=== PATIENT | male | born 1940 | race Caucasian/White ===

== ENCOUNTER → 2016-10-25 | Outpatient (CLI) | payer MEDICARE ==
[2016-10-25 11:08] LABS: Anisocytosis Slight; Basophils % (A) 1 %; C Reactive Protein <5.0 mg/L (<10.0); CH 29.5; CHCM 32.4; Eosinophils # (A) 0.1 k/uL (0-0.7); Eosinophils % (A) 2 %; HCT 35.4 % (39.0-53.0); HDW 2.48; HGB 11.9 gm/dL (13.0-17.5); Iron 37 ug/dL (49-181); Luc # (Auto) 0.12; Luc % (Auto) 3; Lymphocytes # (A) 1.2 k/uL (1.0-4.8); Lymphocytes % (A) 26 %; MCH 30.9 pg (25.0-35.0); MCHC 33.8 g/dL (31.0-37.0); MCV 91.5 fL (80.0-100.0); Mean Platelet Volume 7.2; Monocytes # (A) 0.3 k/uL (0-1.0); Monocytes % (A) 7 %; Neutrophils # (A) 2.8 k/uL (1.3-7.7); Neutrophils % (A) 61 %; RBC 3.87 m/uL (4.30-5.90); RDW 18.8 % (11.5-15.5); Reticulocyte % 1.5 % (0.5-2.0); WBC 4.5 k/uL (3.8-10.6); WBC (Perox) 4.68
[2016-10-25 11:15] LABS: % Iron Saturation 10.6 % (20-50); Total Iron Binding Capacity 348 ug/dL (261-462)
== END | disposition home or self-care (01) ==
LOC: LABWHC1 10:11
PROVIDERS: ATTEND Family Medicine
DX: D64.9 Anemia, unspecified (principal)
CPT/HCPCS: 36415; 83540; 83550; 85025; 85045; 86140

== ENCOUNTER → 2017-03-07 | Outpatient (CLI) | payer MEDICARE ==
[2017-03-07 15:34] LABS: CH 30.1; HCT 38.4 % (39.0-53.0); HDW 2.44; HGB 12.3 gm/dL (13.0-17.5); MCH 29.4 pg (25.0-35.0); MCHC 32.1 g/dL (31.0-37.0); MCV 91.7 fL (80.0-100.0); Mean Platelet Volume 7.4; RBC 4.19 m/uL (4.30-5.90); RDW 15.3 % (11.5-15.5); WBC 7.9 k/uL (3.8-10.6)
[2017-03-07 15:39] LABS: ALT 23 U/L (21-72); AST 13 U/L (17-59); Alkaline Phosphatase 47 U/L (38-126); Anion Gap 9 mmol/L; Blood Urea Nitrogen 20 mg/dL (9-20); Calcium 9.2 mg/dL (8.4-10.2); Carbon Dioxide 27 mmol/L (22-30); Chloride 101 mmol/L (98-107); Glucose 181 mg/dL (74-99); Magnesium 1.7 mg/dL (1.6-2.3); Non-African American GFR(MDRD) >60 (>60 ml/min/1.73 sqM); Potassium 4.7 mmol/L (3.5-5.1); Sodium 137 mmol/L (137-145); Total Bilirubin 0.2 mg/dL (0.2-1.3); Total Protein 6.7 g/dL (6.3-8.2)
== END | disposition home or self-care (01) ==
LOC: LABWHC1 15:12
PROVIDERS: ATTEND Internal Medicine Cardiovascular Disease
DX: I35.9 Nonrheumatic aortic valve disorder, unspecified (principal)
CPT/HCPCS: 36415; 80053; 83735; 83880; 85027

== ENCOUNTER 2018-08-25 11:18 | Observation (INO) | payer MEDICARE ==
[2018-08-25] MEDS ORDERED: ASPIRIN 81 MG PO STA (11:38)
[2018-08-25] MEDS ORDERED: NITROGLYCERIN OINT 1 INCH/GM PACKET TOPICAL STA (11:38)
--- NOTE | 2018-08-25 12:00 | XR ---
EXAMINATION TYPE: XR chest 2V DATE OF EXAM: 08/25/2018 COMPARISON: NONE HISTORY: Chest and upper abdominal pain. TECHNIQUE: Frontal and lateral views of the chest are obtained. FINDINGS: There is chronic minimal change without suspicious focal air space opacity, pleural effusi on, or pneumothorax seen. The cardiac silhouette size is mildly enlarged with stent graft at aortic root. The osseous structures are demineralized. Bridging osteophytes in the thoracic spine are pres ent. Degenerative change left shoulder is seen IMPRESSION: Chronic changes and mild cardiomegaly without acute cardiopulmonary process.
[2018-08-25 12:04] LABS: Anisocytosis Slight; Basophils # (A) 0.1 k/uL (0-0.2); Basophils % (A) 1 %; Eosinophils # (A) 0.1 k/uL (0-0.7); Eosinophils % (A) 3 %; HCT 38.8 % (39.0-53.0); HGB 13.2 gm/dL (13.0-17.5); Lymphocytes # (A) 1.4 k/uL (1.0-4.8); Lymphocytes % (A) 25 %; MCH 29.6 pg (25.0-35.0); MCHC 34.1 g/dL (31.0-37.0); MCV 86.7 fL (80.0-100.0); Mean Platelet Volume 7.3; Monocytes # (A) 0.4 k/uL (0-1.0); Monocytes % (A) 8 %; Neutrophils # (A) 3.4 k/uL (1.3-7.7); Neutrophils % (A) 62 %; Platelet Count 270 k/uL (150-450); RBC 4.47 m/uL (4.30-5.90); RDW 17.8 % (11.5-15.5); WBC 5.5 k/uL (3.8-10.6)
--- NOTE | 2018-08-25 12:19 | ED ---
General Adult HPI - General Chief complaint: Chest Pain Stated complaint: chest pain/ abdominal pain Time Seen by Provider: 08/25/18 11:20 Source: patient, RN notes reviewed Mode of arrival: wheelchair Limitations: no limitations - History of Present Illness Initial comments: This is a 78-year-old male whose states he had chest pain. Patient has d ementia so does not remember this. Patient's states he complained of chest pain at the base of the sternum in the last about 20 minutes. states he also is having some difficulty breathing at that time. states he is a diabetic with high blood pressure high cholesterol. Patient also has had a valve replaced according to the but no heart attacks. Patient currently has no complaints and denies any pain. states she thought the pain was reproducible with palpation. Patient has not had any recent fever chills or cough. Patient has no abdominal pain there's been no nausea vomiting diarrhea. Patient is not complaining of any recent headache. Patient himself is a very poor historian but the gives a history. - Related Data Home Medications Medication Instructions Recorded Confirmed Aspirin EC [Ecotrin] 162 mg PO DAILY 02/14/15 08/25/18 Glimepiride [Amaryl] 2 mg PO AC-BID 02/14/15 08/25/18 Losartan Potassium [Cozaar] 100 mg PO DAILY 02/14/15 08/25/18 Multivitamins, Thera [Theragran] 1 tab PO DAILY 02/14/15 08/25/18 [place]-3 Fatty Acids/Fish Oil [Fish 1 cap PO BID 02/14/15 08/25/18 Oil 1,000 mg Softgel] Pioglitazone [Actos] 45 mg PO DAILY 02/14/15 08/25/18 metFORMIN HCL [Glucophage] 1,000 mg PO BID 02/14/15 08/25/18 Cholecalciferol [Vitamin D3] 2,000 unit PO DAILY 08/25/18 08/25/18 Docusate 50mg 100 mg PO DAILY PRN 08/25/18 08/25/18 Donepezil [Aricept] 10 mg PO HS 08/25/18 08/25/18 Ferrous Sulfate [Feosol] 325 mg PO BID 08/25/18 08/25/18 Memantine HCl [Namenda Xr] 28 mg PO DAILY 08/25/18 08/25/18 QUEtiapine [SEROquel] 25 mg PO HS 08/25/18 08/25/18 Rosuvastatin [Crestor] 20 mg PO DAILY 08/25/18 08/25/18 amLODIPine [Norvasc] 5 mg PO DAILY 08/25/18 08/25/18 traMADol HCL [Ultram] 50 mg PO Q6H PRN 08/25/18 08/25/18 Allergies Allergy/AdvReac Type Severity Reaction Status Date / Time iodine Allergy Severe PASSES OUT Verified 08/25/18 12:14 shellfish derived [Shellfish] Allergy PASSES OUT Verified 08/25/18 12:14 Review of Systems ROS Statement: Those systems with pertinent positive or pertinent negative responses have been documented in the HPI. ROS Other: All systems not noted in ROS Statement are negative. 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 TO REMOVE TUMOR, HIATAL HERNIA SURGERY, RT CTR, COLONOSCOPIES, heart valve replacement Past Anesthesia/Blood Transfusion Reactions: No Reported Reaction Past Psychological History: Anxiety Smoking Status: Former smoker Past Alcohol Use History: None Reported Past Drug Use History: None Reported - Past Family History Mother Family Medical History: Cancer, Diabetes Mellitus, Hypertension Additional Family Medical History / Comment(s): UNKNOWN TYPE OF CA Father Family Medical History: No Reported History Additional Family Medical History / Comment(s): PT'S FATHER WHEN PT WAS A BABY IN A MVA General Exam - General Exam Comments Initial Comments: GENERAL: Patient is well-developed and well-nourished. Patient is nontoxic and well- hydrated and is in no acute distress. ENT: Neck is soft and supple. No significant lymphadenopathy is noted. Oropharynx is clear. Moist mucous membranes. Neck has full range of motion without eliciting any pain. EYES: The sclera were anicteric and conjunctiva were pink and moist. Extraocular movements were intact and pupils were equal round and reactive to light. Eyelids were unremarkable. PULMONARY: Unlabored respirations. Good breath sounds bilaterally. No audible rales rhonchi or wheezing was noted. CARDIOVASCULAR: There is a regular rate and rhythm without any murmurs gallops or rubs. ABDOMEN: Soft and nontender with normal bowel sounds. No palpable organomegaly was noted. There is no palpable pulsatile mass. SKIN: Skin is clear with no lesions or rashes and otherwise unremarkable. NEUROLOGIC: Patient is alert and oriented x3. Cranial nerves II through XII are grossly intact. Motor and sensory are also intact. Normal speech, volume and content. Symmetrical smile. MUSCULOSKELETAL: Normal extremities with adequate strength and full range of motion. No lower extremity swelling or edema. No calf tenderness. LYMPHATICS: No significant lymphadenopathy is noted PSYCHIATRIC: Normal psychiatric evaluation. Limitations: no limitations Course Vital Signs 08/25/18 08/25/18 08/25/18 11:22 11:36 11:40 Temperature 97.8 F Pulse Rate 73 61 Pulse Rate [ Apical] Respiratory 18 20 Rate Blood Pressure 152/74 160/82 O2 Sat by Pulse 98 95 96 Oximetry 08/25/18 08/25/18 08/25/18 11:45 11:50 12:00 Temperature Pulse Rate 65 66 Pulse Rate [ 67 Apical] Respiratory 20 14 Rate Blood Pressure 160/82 160/82 O2 Sat by Pulse 96 95 Oximetry 08/25/18 08/25/18 08/25/18 12:10 12:20 12:30 Temperature Pulse Rate 58 L 68 61 Pulse Rate [ Apical] Respiratory 11 L 15 11 L Rate Blood Pressure 144/77 O2 Sat by Pulse 95 94 L 95 Oximetry 08/25/18 08/25/18 08/25/18 12:40 12:50 13:00 Temperature Pulse Rate 65 66 71 Pulse Rate [ Apical] Respiratory 13 20 20 Rate Blood Pressure 147/75 147/75 147/75 O2 Sat by Pulse 94 L 95 94 L Oximetry Medical Decision Making - Medical Decision Making EKG shows sinus bradycardia 50 bpm NE interval is 174 QRS is 80 QT interval 420 QTC is 412. Patient's EKG shows no ST segment elevation or depression. Chest x-ray shows no acute abnormality. Patient is no longer having any chest pain at this time but because of his risk factors and his presenting symptoms I believe the patient was having unstable angina and I started him on heparin. I spoke with Dr. Rodriguez he agreed to admit the patient admitted the patient wrote admitting orders and continue heparin and aspirin and Nitropaste on the floor. I consult to cardiology. - Lab Data Result diagrams: 08/25/18 11:40 08/25/18 11:40 Lab Results 08/25/18 08/25/18 08/25/18 Range/Units 11:40 11:40 11:40 WBC 5.5 (3.8-10.6) k/uL RBC 4.47 (4.30-5.90) m/uL Hgb 13.2 (13.0-17.5) gm/dL Hct 38.8 L (39.0-53.0) % MCV 86.7 (80.0-100.0) fL MCH 29.6 (25.0-35.0) pg MCHC 34.1 (31.0-37.0) g/dL RDW 17.8 H (11.5-15.5) % Plt Count 270 (150-450) k/uL Neutrophils % 62 % Lymphocytes % 25 % Monocytes % 8 % Eosinophils % 3 % Basophils % 1 % Neutrophils # 3.4 (1.3-7.7) k/uL Lymphocytes # 1.4 (1.0-4.8) k/uL Monocytes # 0.4 (0-1.0) k/uL Eosinophils # 0.1 (0-0.7) k/uL Basophils # 0.1 (0-0.2) k/uL Anisocytosis Slight PT 10.9 (9.0-12.0) sec INR 1.0 (<1.2) APTT 26.6 (22.0-30.0) sec Sodium 141 (137-145) mmol/L Potassium 4.3 (3.5-5.1) mmol/L Chloride 105 (98-107) mmol/L Carbon Dioxide 28 (22-30) mmol/L Anion Gap 8 mmol/L BUN 21 H (9-20) mg/dL Creatinine 0.83 (0.66-1.25) mg/dL Est GFR (CKD-EPI)AfAm >90 (>60 ml/min/1.73 sqM) Est GFR (CKD-EPI)NonAf 84 (>60 ml/min/1.73 sqM) Glucose 192 H (74-99) mg/dL Calcium 9.3 (8.4-10.2) mg/dL Magnesium 1.7 (1.6-2.3) mg/dL Total Bilirubin 0.3 (0.2-1.3) mg/dL AST 14 L (17-59) U/L ALT 21 (21-72) U/L Alkaline Phosphatase 46 (38-126) U/L Troponin I (0.000-0.034) ng/mL Total Protein 6.4 (6.3-8.2) g/dL Albumin 3.9 (3.5-5.0) g/dL Amylase 161 H (30-110) U/L Lipase 273 (23-300) U/L 08/25/18 Range/Units 11:40 WBC (3.8-10.6) k/uL RBC (4.30-5.90) m/uL Hgb (13.0-17.5) gm/dL Hct (39.0-53.0) % MCV (80.0-100.0) fL MCH (25.0-35.0) pg MCHC (31.0-37.0) g/dL RDW (11.5-15.5) % Plt Count (150-450) k/uL Neutrophils % % Lymphocytes % % Monocytes % % Eosinophils % % Basophils % % Neutrophils # (1.3-7.7) k/uL Lymphocytes # (1.0-4.8) k/uL Monocytes # (0-1.0) k/uL Eosinophils # (0-0.7) k/uL Basophils # (0-0.2) k/uL Anisocytosis PT (9.0-12.0) sec INR (<1.2) APTT (22.0-30.0) sec Sodium (137-145) mmol/L Potassium (3.5-5.1) mmol/L Chloride (98-107) mmol/L Carbon Dioxide (22-30) mmol/L Anion Gap mmol/L BUN (9-20) mg/dL Creatinine (0.66-1.25) mg/dL Est GFR (CKD-EPI)AfAm (>60 ml/min/1.73 sqM) Est GFR (CKD-EPI)NonAf (>60 ml/min/1.73 sqM) Glucose (74-99) mg/dL Calcium (8.4-10.2) mg/dL Magnesium (1.6-2.3) mg/dL Total Bilirubin (0.2-1.3) mg/dL AST (17-59) U/L ALT (21-72) U/L Alkaline Phosphatase (38-126) U/L Troponin I <0.012 (0.000-0.034) ng/mL Total Protein (6.3-8.2) g/dL Albumin (3.5-5.0) g/dL Amylase (30-110) U/L Lipase (23-300) U/L Critical Care Time Critical Care Time: Yes Total Critical Care Time: 35 Disposition Clinical Impression: Unstable angina pectoris Disposition: ADMITTED IP TO THIS HOSP Referrals: Adrián Martinez MD [Primary Care Provider] - 1-2 days Time of Disposition: 13:24
[2018-08-25 12:27] LABS: Partial Thromboplastin Time 26.6 sec (22.0-30.0); Prothrombin Time 10.9 sec (9.0-12.0)
[2018-08-25 12:28] LABS: ALT 21 U/L (21-72); AST 14 U/L (17-59); Albumin 3.9 g/dL (3.5-5.0); Alkaline Phosphatase 46 U/L (38-126); Amylase 161 U/L (30-110); Anion Gap 8 mmol/L; Blood Urea Nitrogen 21 mg/dL (9-20); Calcium 9.3 mg/dL (8.4-10.2); Carbon Dioxide 28 mmol/L (22-30); Chloride 105 mmol/L (98-107); Glucose 192 mg/dL (74-99); Lipase 273 U/L (23-300); Magnesium 1.7 mg/dL (1.6-2.3); Potassium 4.3 mmol/L (3.5-5.1); Sodium 141 mmol/L (137-145); Total Bilirubin 0.3 mg/dL (0.2-1.3); Total Protein 6.4 g/dL (6.3-8.2)
[2018-08-25] MEDS ORDERED: LORazepam 1 MG TAB PO STA (13:09)
[2018-08-25] MEDS ORDERED: HEPARIN SODIUM,PORCINE 5,000 UNIT/ML 1 ML VIAL IV ONE (13:10)
[2018-08-25] MEDS ORDERED: NITROGLYCERIN SL TABS 0.4 MG TAB SUBLINGUAL PRN (13:24)
[2018-08-25] MEDS: HEPARIN SOD,PORK IN 0.45% NACL 25,000 UNIT in 0.45% NACL 1 250ML.BAG IV SCH (13:25)
[2018-08-25] MEDS ORDERED: LORazepam 2 MG/ML INJ IV STA (14:10)
[2018-08-25 16:29] VITALS: BMI 25.9
[2018-08-25] MEDS ORDERED: DOCUSATE 100 MG CAP PO PRN (17:00)
[2018-08-25] MEDS ORDERED: traMADol 50 MG TAB PO PRN (17:00)
[2018-08-25 17:01] LABS: Glucose,Whole Blood 243 mg/dL (75-99)
[2018-08-25] MEDS: metFORMIN 500 MG TAB PO SCH (17:35)
[2018-08-25] MEDS: INSULIN ASPART (NovoLOG) 100 UNIT/ML VIAL SQ SCH ×2 (17:35→19:52)
[2018-08-25] MEDS: GLIMEPIRIDE 2 MG TAB PO SCH (17:35)
[2018-08-25] MEDS: PANTOPRAZOLE 40 MG TABLET PO SCH (17:36)
[2018-08-25] MEDS: NITROGLYCERIN OINT 1 INCH/GM PACKET TOPICAL SCH (17:36)
[2018-08-25] MEDS: DONEPEZIL 10 MG TAB PO SCH (19:46)
[2018-08-25] MEDS: FERROUS SULFATE 325 MG TAB PO SCH (19:46)
[2018-08-25] MEDS: FISH OIL 1000MG PO SCH (19:46)
[2018-08-25] MEDS: QUEtiapine 25 MG TAB PO SCH (19:46)
[2018-08-25] MEDS: MEMANTINE 10 MG TAB PO SCH (19:46)
[2018-08-25] MEDS: ATORVASTATIN 40 MG TAB PO SCH (19:46)
[2018-08-25] MEDS: amLODIPine 5 MG TAB PO SCH (19:46)
[2018-08-25] MEDS ORDERED: LORazepam 1 MG TAB PO PRN (19:51)
[2018-08-25 19:52] LABS: Glucose,Whole Blood 135 mg/dL (75-99)
[2018-08-25 19:54] VITALS: RESP 18
[2018-08-26] MEDS: NITROGLYCERIN OINT 1 INCH/GM PACKET TOPICAL SCH ×5 (00:15→23:15)
[2018-08-26 01:59] LABS: Cholesterol 108 mg/dL (<200); HDL Cholesterol 32 mg/dL (40-60); LDL Cholesterol,Calculated 46 mg/dL (0-99); Triglycerides 152 mg/dL (<150)
[2018-08-26 05:49] LABS: Glucose,Whole Blood 107 mg/dL (75-99)
[2018-08-26] MEDS: INSULIN ASPART (NovoLOG) 100 UNIT/ML VIAL SQ SCH ×4 (05:58→21:17)
[2018-08-26] MEDS: PANTOPRAZOLE 40 MG TABLET PO SCH (06:18)
[2018-08-26] MEDS: metFORMIN 500 MG TAB PO SCH ×2 (08:07→16:36)
[2018-08-26] MEDS: LOSARTAN 50 MG TAB PO SCH (08:07)
[2018-08-26] MEDS: CHOLECALCIFEROL 1,000 UNIT TAB PO SCH (08:07)
[2018-08-26] MEDS: MEMANTINE 10 MG TAB PO SCH ×2 (08:07→21:16)
[2018-08-26] MEDS: FERROUS SULFATE 325 MG TAB PO SCH ×2 (08:08→21:17)
[2018-08-26] MEDS: ASPIRIN 81 MG PO SCH (08:08)
[2018-08-26] MEDS: GLIMEPIRIDE 2 MG TAB PO SCH ×2 (08:08→16:36)
[2018-08-26] MEDS: MULTIVITAMINS, THERA 1 EACH TAB PO SCH ×2 (08:08→08:09)
[2018-08-26] MEDS: PIOGLITAZONE 45 MG TAB PO SCH (08:09)
[2018-08-26] MEDS: FISH OIL 1000MG PO SCH ×2 (08:14→20:59)
--- NOTE | 2018-08-26 08:16 | P.CRDCN ---
History of Present Illness Consult date: 08/26/18 Requesting physician: Nicky Rodriguez Consult reason: chest pain Chief complaint: Epigastric pain History of present illness: This is a pleasant 78-year-old gentleman with known history of diabetes, hypertension, hyperlipidemia, hiatal hernia with prior surgery, aortic stenosis for which the patient underwent TaVR at [facility] about a year and a half ago, he did undergo cardiac catheterization in 2016 which revealed minor noncritical disease of the right dominant system, no significant pulmonary hypertension. He has advanced Alzheimer's dementia, his cares for him at home. She noticed yesterday that he was complaining of some epigastric discomfort, quite tender on palpation of the chest. He does have a prominent bony spot in that area, believed to be from a prior several years ago. According to the this was the area where he was quite tender yesterday. Patient had no associated diaphoresis, shortness of breath or nausea. At the time of my examination this morning he is currently chest pain-free. The patient used to follow with Dr. 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 Chest x-ray performed on admission did not reveal any acute findings. His EKG showed a sinus bradycardia with no acute changes noted. Subsequent morning EKG shows same. Blood pressure 132/70 with a heart rate in the 80s, 95% on room air. White blood cell count 5.5, hemoglobin 13.2, platelet count 270. Sodium 141, potassium 4.3, BUN 21 and creatinine 0.8. Magnesium level I.7. AST 14 ALT 21 alk phos 46. Amylase 161 lipase 273. Troponins have been negative 3. As mentioned, this morning patient is quite comfortable resting in bed, denies any chest pain, chest wall tenderness is no longer present today. Past Medical History Past Medical History: Cancer, Diabetes Mellitus, Eye Disorder, GERD/Reflux, Hearing Disorder / Deafness, Hyperlipidemia, Hypertension, Memory Impairment, Osteoarthritis (OA) Additional Past Medical History / Comment(s): PT WAS TOLD SEVERE AORTIC STENOSIS,HEART MURMUR SINCE A CHILD,HX STOMACH ULCER, HX SARCOMA LEFT LEG-LIMPS SINCE 2004,GLASSES DAILY USE, [place] ALIDA. 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 TO REMOVE TUMOR, HIATAL HERNIA SURGERY, RT CTR, COLONOSCOPIES, heart valve replacement Past Anesthesia/Blood Transfusion Reactions: No Reported Reaction Past Psychological History: Anxiety Smoking Status: Former smoker Past Alcohol Use History: None Reported Additional Past Alcohol Use History / Comment(s): SMOKER SINCE AGE 17(1957) TILL 2008-WAS 1 1/2 PPD Past Drug Use History: None Reported - Past Family History Mother Family Medical History: Cancer, Diabetes Mellitus, Hypertension Additional Family Medical History / Comment(s): UNKNOWN TYPE OF CA Father Family Medical History: No Reported History Additional Family Medical History / Comment(s): PT'S FATHER WHEN PT WAS A BABY IN A MVA Medications and Allergies Home Medications Medication Instructions Recorded Confirmed Type Aspirin EC [Ecotrin] 81 mg PO DAILY 02/14/15 08/25/18 History Glimepiride [Amaryl] 2 mg PO AC-BID 02/14/15 08/25/18 History Losartan Potassium [Cozaar] 100 mg PO DAILY 02/14/15 08/25/18 History Multivitamins, Thera [Theragran] 1 tab PO DAILY 02/14/15 08/25/18 History [place]-3 Fatty Acids/Fish Oil [Fish 1 cap PO BID 02/14/15 08/25/18 History Oil 1,000 mg Softgel] Pioglitazone [Actos] 45 mg PO DAILY 02/14/15 08/25/18 History metFORMIN HCL [Glucophage] 1,000 mg PO BID 02/14/15 08/25/18 History Cholecalciferol [Vitamin D3] 2,000 unit PO DAILY 08/25/18 08/25/18 History Docusate 50mg 100 mg PO DAILY PRN 08/25/18 08/25/18 History Donepezil [Aricept] 10 mg PO HS 08/25/18 08/25/18 History Ferrous Sulfate [Feosol] 325 mg PO BID 08/25/18 08/25/18 History Memantine HCl [Namenda Xr] 28 mg PO HS 08/25/18 08/25/18 History QUEtiapine [SEROquel] 25 mg PO HS 08/25/18 08/25/18 History Rosuvastatin [Crestor] 20 mg PO HS 08/25/18 08/25/18 History amLODIPine [Norvasc] 5 mg PO HS 08/25/18 08/25/18 History traMADol HCL [Ultram] 50 mg PO Q6H PRN 08/25/18 08/25/18 History Allergies Allergy/AdvReac Type Severity Reaction Status Date / Time iodine Allergy Severe PASSES OUT Verified 08/25/18 12:14 shellfish derived [Shellfish] Allergy PASSES OUT Verified 08/25/18 12:14 Physical Exam Vitals: Vital Signs Temp Pulse Pulse Resp BP BP Pulse Ox 08/26/18 03:50 82 08/26/18 03:49 97.9 F 82 18 133/70 95 08/26/18 00:00 79 18 125/60 97 08/25/18 19:53 98 F 73 18 130/61 96 08/25/18 17:14 95 08/25/18 16:15 75 20 08/25/18 15:58 97.9 F 75 20 122/59 95 08/25/18 13:00 71 20 147/75 94 L 08/25/18 12:50 66 20 147/75 95 08/25/18 12:40 65 13 147/75 94 L 08/25/18 12:30 61 11 L 144/77 95 08/25/18 12:20 68 15 94 L 08/25/18 12:10 58 L 11 L 95 08/25/18 12:00 66 14 160/82 95 08/25/18 11:50 65 20 160/82 96 08/25/18 11:45 67 08/25/18 11:40 61 20 160/82 96 08/25/18 11:36 95 08/25/18 11:22 97.8 F 73 18 152/74 98 Intake and Output 08/25/18 08/26/18 08/26/18 22:59 06:59 14:59 Intake Total 667.173 0 Balance 667.173 0 Intake: Intake, IV Titration 67.173 Amount Heparin Sod,Pork in 0.45% 67.173 NaCl 25,000 unit In 0.45 % NaCl 1 250ml.bag @ 12 UNITS/KG/HR 9.308 mls/hr IV .Q24H [facility] Rx#: [id number] Oral 600 0 Other: Voiding Method Urinal # Voids 1 Weight 59.5 kg PHYSICAL EXAMINATION: GENERAL: 78-year-old gentleman in no acute distress at the time of my examination HEENT: Head is atraumatic, normocephalic. Pupils equal, round. Sclera anicteric. Conjunctiva are clear. Mucous membranes of the mouth are moist. Neck is supple. There is no elevated jugular venous pressure. No carotid bruit is heard. HEART EXAMINATION: Heart S1 S2 1 systolic murmur is heard CHEST EXAMINATION: Lungs are clear to auscultation and precussion. No chest wall tenderness is noted on palpation or with deep breathing. ABDOMEN: Soft, nontender. Bowel sounds are heard. No organomegaly noted. EXTREMITIES: 2+ peripheral pulses with no evidence of peripheral edema and no calf tenderness noted. NEUROLOGIC patient is awake, alert and oriented 1 . . Results 08/25/18 11:40 08/25/18 11:40 Cardiac Enzymes 08/25/18 08/25/18 08/25/18 Range/Units 11:40 11:40 19:48 AST 14 L (17-59) U/L Troponin I <0.012 <0.012 (0.000-0.034) ng/mL 08/26/18 Range/Units 00:05 AST (17-59) U/L Troponin I <0.012 (0.000-0.034) ng/mL Coagulation 08/25/18 08/25/18 08/26/18 Range/Units 11:40 19:48 06:25 PT 10.9 (9.0-12.0) sec APTT 26.6 52.4 H 56.5 H (22.0-30.0) sec Lipids 08/25/18 Range/Units 11:40 Triglycerides 152 H (<150) mg/dL Cholesterol 108 (<200) mg/dL HDL Cholesterol 32 L (40-60) mg/dL CBC 08/25/18 Range/Units 11:40 WBC 5.5 (3.8-10.6) k/uL RBC 4.47 (4.30-5.90) m/uL Hgb 13.2 (13.0-17.5) gm/dL Hct 38.8 L (39.0-53.0) % Plt Count 270 (150-450) k/uL Comprehensive Metabolic Panel 08/25/18 Range/Units 11:40 Sodium 141 (137-145) mmol/L Potassium 4.3 (3.5-5.1) mmol/L Chloride 105 (98-107) mmol/L Carbon Dioxide 28 (22-30) mmol/L BUN 21 H (9-20) mg/dL Creatinine 0.83 (0.66-1.25) mg/dL Glucose 192 H (74-99) mg/dL Calcium 9.3 (8.4-10.2) mg/dL AST 14 L (17-59) U/L ALT 21 (21-72) U/L Alkaline Phosphatase 46 (38-126) U/L Total Protein 6.4 (6.3-8.2) g/dL Albumin 3.9 (3.5-5.0) g/dL Current Medications Generic Name Dose Route Start Last Admin Trade Name Freq PRN Reason Stop Dose Admin Amlodipine Besylate 5 mg 08/25/18 21:00 08/25/18 19:46 Norvasc PO 5 mg HS [facility] Administration Aspirin 81 mg 08/26/18 09:00 Aspirin PO DAILY [facility] Atorvastatin Calcium 40 mg 08/25/18 21:00 08/25/18 19:46 Lipitor PO 40 mg HS [facility] Administration Cholecalciferol 2,000 unit 08/26/18 09:00 Vitamin D3 PO DAILY [facility] Docusate Sodium 100 mg 08/25/18 17:00 Colace PO DAILY PRN Constipation Donepezil HCl 10 mg 08/25/18 21:00 08/25/18 19:46 Aricept PO 10 mg HS [facility] Administration Ferrous Sulfate 325 mg 08/25/18 21:00 08/25/18 19:46 Feosol PO 325 mg BID [facility] Administration Glimepiride 2 mg 08/25/18 17:30 08/25/18 17:35 Amaryl PO 2 mg AC-BID [facility] Administration Heparin Sodium/Sodium Chloride 250 mls @ 9.308 mls/hr 08/25/18 13:15 08/25/18 20:38 25,000 unit/ Sodium Chloride IV 12 units/kg/hr .Q24H [facility] 9.308 mls/hr Titration Protocol 12 UNITS/KG/HR Insulin Aspart 0 unit 08/25/18 17:30 08/26/18 05:58 Novolog SQ Not Given ACHS [facility] Protocol Lorazepam 1 mg 08/25/18 19:51 08/25/18 20:11 Ativan PO 1 mg Q8HR PRN Administration Agitation Losartan Potassium 100 mg 08/26/18 09:00 Cozaar PO DAILY [facility] Memantine 10 mg 08/25/18 21:00 08/25/18 19:46 Namenda PO 10 mg BID [facility] Administration Metformin HCl 1,000 mg 08/25/18 17:30 08/25/18 17:35 Glucophage PO 1,000 mg BID-W/MEALS [facility] Administration Multivitamins 1 each 08/26/18 09:00 Theragran PO DAILY [facility] Nitroglycerin 1 inch 08/25/18 18:00 08/26/18 06:18 Nitro-Bid Oint TOPICAL 1 inch Q6HR [facility] Administration Nitroglycerin 0.4 mg 08/25/18 13:24 Nitrostat SUBLINGUAL Q5M PRN Chest Pain Fish Oil 1000mg 1 cap 08/25/18 21:00 08/25/18 19:46 PO Not Given BID [facility] Pantoprazole Sodium 40 mg 08/25/18 17:15 08/26/18 06:18 Protonix PO 40 mg AC-BRKFST [facility] Administration Pioglitazone HCl 45 mg 08/26/18 09:00 Actos PO DAILY [facility] Quetiapine Fumarate 25 mg 08/25/18 21:00 08/25/18 19:46 Seroquel PO 25 mg HS [facility] Administration Tramadol HCl 50 mg 08/25/18 17:00 Ultram PO Q6H PRN Pain Intake and Output 08/25/18 08/26/18 08/26/18 22:59 06:59 14:59 Intake Total 667.173 0 Balance 667.173 0 Intake: Intake, IV Titration 67.173 Amount Heparin Sod,Pork in 0.45% 67.173 NaCl 25,000 unit In 0.45 % NaCl 1 250ml.bag @ 12 UNITS/KG/HR 9.308 mls/hr IV .Q24H [facility] Rx#: [id number] Oral 600 0 Other: Voiding Method Urinal # Voids 1 Weight 59.5 kg 08/25/18 11:40 08/25/18 11:40 EKG Interpretations (text) EKG shows a sinus bradycardia with no acute changes. Assessment and Plan Plan: Assessment and plan #1 mid epigastric pain, atypical for acute coronary syndrome. Troponins are negative 3. EKG shows a sinus bradycardia with no acute changes. #2 hypertension #3 diabetes #4 hyperlipidemia #5 Alzheimer's dementia #6 aortic stenosis with prior TAVR approximately a year and a half ago at [facility] #7 hiatal hernia with prior surgery Plan We will feed the patient, discontinue IV heparin. The patient's pain is very atypical for acute coronary syndrome. Obtain an echocardiogram with Doppler study. Continue a baby aspirin, Lipitor, Cozaar. Further recommendations to follow. DNP note has been reviewed, I agree with a documented findings and plan of care. Patient was seen and examined.
[2018-08-26] MEDS ORDERED: ASPIRIN 325 MG TAB PO SCH (09:00)
[2018-08-26 09:56] LABS: Basophils % (A) 1 %; Eosinophils # (A) 0.2 k/uL (0-0.7); Eosinophils % (A) 3 %; HCT 33.6 % (39.0-53.0); HGB 11.6 gm/dL (13.0-17.5); Lymphocytes % (A) 35 %; MCHC 34.6 g/dL (31.0-37.0); MCV 86.9 fL (80.0-100.0); Mean Platelet Volume 8.1; Monocytes # (A) 0.5 k/uL (0-1.0); Monocytes % (A) 8 %; Neutrophils # (A) 3.1 k/uL (1.3-7.7); Neutrophils % (A) 53 %; Platelet Count 238 k/uL (150-450); RBC 3.87 m/uL (4.30-5.90); RDW 14.7 % (11.5-15.5); WBC 5.8 k/uL (3.8-10.6)
[2018-08-26] MEDS: HEPARIN SOD,PORK IN 0.45% NACL 25,000 UNIT in 0.45% NACL 1 250ML.BAG IV SCH (10:42)
[2018-08-26] MEDS: LORazepam 2 MG/ML INJ IV PRN ×3 (10:43→22:59)
[2018-08-26 11:13] LABS: Glucose,Whole Blood 135 mg/dL (75-99)
[2018-08-26 12:01] LABS: Hemoglobin A1C 7.9 % (4.0-6.0)
--- NOTE | 2018-08-26 12:37 | ECHOF ---
Referral Reason:chest pain, hx of TAVR MEASUREMENTS -------- HEIGHT: 172.7 cm WEIGHT: 64.0 kg BP: 133/70 IVSd: 1.1 cm (0.6 - 1.1) LVIDd: 4.8 cm (3.9 - 5.3) LVPWd: 1.0 cm (0.6 - 1.1) IVSs: 2.1 cm LVIDs: 1.8 cm LVPWs: 2.0 cm LAESV Index (A-L): 30.02 ml/m Ao Diam: 2.8 cm (2.0 - 3.7) AV Cusp: 1.8 cm (1.5 - 2.6) LA Diam: 4.2 cm (2.7 - 3.8) MV EXCURSION: 14.230 mm (> 18.000) MV EF SLOPE: 25 mm/s (70 - 150) EPSS: 0.4 cm MV E Dariel: 0.67 m/s MV DecT: 369 ms MV A Dariel: 1.04 m/s MV E/A Ratio: 0.65 AV maxP.13 mmHg AV meanP.21 mmHg AR PHT: 472 ms RAP: 5.00 mmHg RVSP: 24.59 mmHg FINDINGS -------- Sinus rhythm. This was a technically good study. The left ventricular size is normal. Overall left ventricular systolic function is normal with, an EF between 55 - 60 %. Sigmoid shaped septum with focal hypertrophy of the basal septum. The remaini ng wall thickness is normal. The right ventricle is normal in size. LA is midly dilated 29-33ml/m2. The right atrial size is normal. There is [id number] aortic regurgitation. Peak/mean gradient across the Aortic Valve is 21.13 mmHg / 11.21mmHg. TAVR procedure done The mitral valve leaflets are mildly thickened. Mild mitral regurgitation is present. Trace tricuspid regurgitation present. The right ventricular systolic pressure, as measured by Dopp ler, is 24.59mmHg. There is no pulmonic regurgitation present. The aortic root size is normal. IVC Not well visulized. There is no pericardial effusion. CONCLUSIONS -------- 1. Sinus rhythm. 2. This was a technically good study. 3. The left ventricular size is normal. 4. Overall left ventricular systolic function is normal with, an EF between 55 - 60 %. 5. Sigmoid shaped septum with focal hypertrophy of the basal septum. The remaining wall thickness is normal. 6. The right ventricle is normal in size. 7. LA is midly dilated 29-33ml/m2. 8. The right atrial size is normal. 9. There is [id number] aortic regurgitation. 10. Peak/mean gradient across the Aortic Valve is 21.13mmHg / 11.21mmHg. 11. TAVR procedure done 12. The mitral valve leaflets are mildly thickened. 13. Mild mitral regurgitation is present. 14. Trace tricuspid regurgitation present. 15. The right ventricular systolic pressure, as measured by Doppler, is 24.59mmHg. 16. There is no pulmonic regurgitation present. 17. The aortic root size is normal. 18. IVC Not well visulized. 19. There is no pericardial effusion. CAR RENTAL MANAGER: Geovanna Spence RDCS
[2018-08-26 16:20] LABS: Glucose,Whole Blood 143 mg/dL (75-99)
[2018-08-26 21:08] LABS: Glucose,Whole Blood 98 mg/dL (75-99)
[2018-08-26] MEDS: QUEtiapine 25 MG TAB PO SCH (21:16)
[2018-08-26] MEDS: ATORVASTATIN 40 MG TAB PO SCH (21:16)
[2018-08-26] MEDS: amLODIPine 5 MG TAB PO SCH (21:16)
[2018-08-26] MEDS: DONEPEZIL 10 MG TAB PO SCH (21:17)
--- NOTE | 2018-08-26 21:18 | P.HPIM ---
History of Present Illness H&P Date: 08/25/18 Chief Complaint: Chest pain Patient is a 78-year-old male with a known history of hypertension, hyperlipidemia, memory impairment, diabetes type 2 [id number], GERD and osteoarthritis, aortic stenosis with history of TaVR, left leg sarcoma and multiple other medical problems including dementia was brought to the hospital by his due to complaints of chest pain. Chest pain is mainly in the epigastric area and at the base of the sternum last about 20 minutes. Most of the history was taken from his at bedside. Patient does have chronic bony growth at the exit the sternal area. Patient did have some difficulty in breathing with chest pain. No acidosis isn't nausea vomiting or diaphoresis. No recent illnesses. No abdominal pain or diarrhea. Patient felt very tired. EKG showed sinus bradycardia Chest x-ray showed and mild cardiomegaly without acute cardiopulmonary process. Review of Systems Constitutional: Patient denies any fever or chills . No generalized weakness or weight loss. Abdomen: Patient denied nausea vomiting and diarrhea and abdominal pain. Cardiovascular: Patient denies any chest pain or short of breath no palpitations. Respiratory: patient denied any cough is from production. No shortness of breath Neurologic: Patient denied any numbness or tingling headache. Complete review of systems could not be obtained from the patient due to underlying dementia. Past Medical History Past Medical History: Cancer, Diabetes Mellitus, Eye Disorder, GERD/Reflux, Hearing Disorder / Deafness, Hyperlipidemia, Hypertension, Memory Impairment, Osteoarthritis (OA) Additional Past Medical History / Comment(s): PT WAS TOLD SEVERE AORTIC STENOSIS,HEART MURMUR SINCE A CHILD,HX STOMACH ULCER, HX SARCOMA LEFT LEG-LIMPS SINCE 2004,GLASSES DAILY USE, [place] ALIDA. 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 TO REMOVE TUMOR, HIATAL HERNIA SURGERY, RT CTR, COLONOSCOPIES, heart valve replacement Past Anesthesia/Blood Transfusion Reactions: No Reported Reaction Past Psychological History: Anxiety Smoking Status: Former smoker Past Alcohol Use History: None Reported Additional Past Alcohol Use History / Comment(s): SMOKER SINCE AGE 17(1957) TILL 2008-WAS 1 1/2 PPD Past Drug Use History: None Reported - Past Family History Mother Family Medical History: Cancer, Diabetes Mellitus, Hypertension Additional Family Medical History / Comment(s): UNKNOWN TYPE OF CA Father Family Medical History: No Reported History Additional Family Medical History / Comment(s): PT'S FATHER WHEN PT WAS A BABY IN A MVA Medications and Allergies Home Medications Medication Instructions Recorded Confirmed Type Aspirin EC [Ecotrin] 81 mg PO DAILY 02/14/15 08/25/18 History Glimepiride [Amaryl] 2 mg PO AC-BID 02/14/15 08/25/18 History Losartan Potassium [Cozaar] 100 mg PO DAILY 02/14/15 08/25/18 History Multivitamins, Thera [Theragran] 1 tab PO DAILY 02/14/15 08/25/18 History [place]-3 Fatty Acids/Fish Oil [Fish 1 cap PO BID 02/14/15 08/25/18 History Oil 1,000 mg Softgel] Pioglitazone [Actos] 45 mg PO DAILY 02/14/15 08/25/18 History metFORMIN HCL [Glucophage] 1,000 mg PO BID 02/14/15 08/25/18 History Cholecalciferol [Vitamin D3] 2,000 unit PO DAILY 08/25/18 08/25/18 History Docusate 50mg 100 mg PO DAILY PRN 08/25/18 08/25/18 History Donepezil [Aricept] 10 mg PO HS 08/25/18 08/25/18 History Ferrous Sulfate [Feosol] 325 mg PO BID 08/25/18 08/25/18 History Memantine HCl [Namenda Xr] 28 mg PO HS 08/25/18 08/25/18 History QUEtiapine [SEROquel] 25 mg PO HS 08/25/18 08/25/18 History Rosuvastatin [Crestor] 20 mg PO HS 08/25/18 08/25/18 History amLODIPine [Norvasc] 5 mg PO HS 08/25/18 08/25/18 History traMADol HCL [Ultram] 50 mg PO Q6H PRN 08/25/18 08/25/18 History Allergies Allergy/AdvReac Type Severity Reaction Status Date / Time iodine Allergy Severe PASSES OUT Verified 08/25/18 12:14 shellfish derived [Shellfish] Allergy PASSES OUT Verified 08/25/18 12:14 Physical Exam Vitals: Vital Signs Temp Pulse Pulse Resp BP BP Pulse Ox 08/25/18 19:53 98 F 73 18 130/61 96 08/25/18 17:14 95 08/25/18 16:15 75 20 08/25/18 15:58 97.9 F 75 20 122/59 95 08/25/18 13:00 71 20 147/75 94 L 08/25/18 12:50 66 20 147/75 95 08/25/18 12:40 65 13 147/75 94 L 08/25/18 12:30 61 11 L 144/77 95 08/25/18 12:20 68 15 94 L 08/25/18 12:10 58 L 11 L 95 08/25/18 12:00 66 14 160/82 95 08/25/18 11:50 65 20 160/82 96 08/25/18 11:45 67 08/25/18 11:40 61 20 160/82 96 08/25/18 11:36 95 08/25/18 11:22 97.8 F 73 18 152/74 98 Intake and Output 08/25/18 08/25/18 08/25/18 06:59 14:59 22:59 Intake Total 600 Balance 600 Intake: Oral 600 Other: Voiding Method Urinal # Voids 1 Weight 77.564 kg PHYSICAL EXAMINATION: Patient is lying in the bed comfortably, no acute distress, awake alert and oriented.. HEENT: Normocephalic. Neck is supple. Pupils reactive. Nostrils clear. Oral cavity is moist. Ears reveal no drainage. Neck reveals no JVD, carotid bruits, or thyromegaly. CHEST EXAMINATION: Trachea is central. Symmetrical expansion. Lung chavez clear to auscultation and percussion. CARDIAC: Normal S1, S2 with no gallops. No murmurs ABDOMEN: Soft. Bowel sounds normal. No organomegaly. No abdominal bruits. Extremities: reveal no edema. No clubbing or cyanosis Neurologically awake, alert, oriented x2-3 with well-coordinated movements. Cognitive impairment. No focal deficits noted Skin: No rash or skin lesions. Psychiatric: Coperative. Could not be assessed completely. Musculoskeletal: No joint swelling or deformity. Normal range of motion. Results CBC & Chem 7: 08/26/18 06:25 08/25/18 11:40 Labs: Abnormal Lab Results - Last 24 Hours (Table) 08/25/18 08/25/18 08/25/18 Range/Units 11:40 11:40 16:30 Hct 38.8 L (39.0-53.0) % RDW 17.8 H (11.5-15.5) % APTT (22.0-30.0) sec BUN 21 H (9-20) mg/dL Glucose 192 H (74-99) mg/dL POC Glucose (mg/dL) 243 H (75-99) mg/dL AST 14 L (17-59) U/L Amylase 161 H (30-110) U/L 08/25/18 08/25/18 Range/Units 19:48 19:50 Hct (39.0-53.0) % RDW (11.5-15.5) % APTT 52.4 H (22.0-30.0) sec BUN (9-20) mg/dL Glucose (74-99) mg/dL POC Glucose (mg/dL) 135 H (75-99) mg/dL AST (17-59) U/L Amylase (30-110) U/L Thrombosis Risk Factor Assmnt - DVT/VTE Prophylaxis DVT/VTE Prophylaxis: Pharmacologic Prophylaxis ordered - Choose All That Apply Any of the Below Risk Factors Present?: Yes Each Factor Represents 1 point: Obesity (BMI >25) Other Risk Factors: Yes Each Risk Factor Represents 3 Points: Age 75 years or older, History of DVT/PE Thrombosis Risk Factor Assessment Total Risk Factor Score: 7 Thrombosis Risk Factor Assessment Level: High Risk Assessment and Plan Assessment: Atypical Chest pain mainly in the epigastric region. Possible unstable angina. aortic stenosis with a history of TAV Diabetes type 2 [id number] Hypertension Dementia Osteoarthritis History of left leg sarcoma status post resection Anxiety Previous history of smoking History of hiatal hernia repair surgery Plan: Patient will be continued on telemetry monitoring. Initial EKG and troponin negative. Patient was started on heparin drip. Not on beta blockers due to Sinus bradycardia Continue with home medications and blood pressure and hypoglycemic medications. Cardiology was consulted. Further recommendations based on the clinical course. Time with Patient: Greater than 30
[2018-08-27 03:13] VITALS: BP 151/70; TEMP 98.2
[2018-08-27] MEDS: NITROGLYCERIN OINT 1 INCH/GM PACKET TOPICAL SCH ×2 (05:23→08:32)
[2018-08-27 06:06] LABS: Glucose,Whole Blood 107 mg/dL (75-99)
[2018-08-27] MEDS: INSULIN ASPART (NovoLOG) 100 UNIT/ML VIAL SQ SCH ×2 (06:14→11:11)
[2018-08-27] MEDS: PANTOPRAZOLE 40 MG TABLET PO SCH (06:19)
[2018-08-27] MEDS: metFORMIN 500 MG TAB PO SCH (06:19)
[2018-08-27] MEDS: GLIMEPIRIDE 2 MG TAB PO SCH (06:19)
[2018-08-27] MEDS: FERROUS SULFATE 325 MG TAB PO SCH (08:31)
[2018-08-27] MEDS: CHOLECALCIFEROL 1,000 UNIT TAB PO SCH (08:31)
[2018-08-27] MEDS: ASPIRIN 81 MG PO SCH (08:31)
[2018-08-27] MEDS: PIOGLITAZONE 45 MG TAB PO SCH (08:31)
[2018-08-27] MEDS: LOSARTAN 50 MG TAB PO SCH (08:31)
[2018-08-27] MEDS: FISH OIL 1000MG PO SCH (08:32)
[2018-08-27] MEDS: MEMANTINE 10 MG TAB PO SCH (08:32)
[2018-08-27 08:58] VITALS: PULSE 68
[2018-08-27] MEDS: LORazepam 2 MG/ML INJ IV PRN (11:09)
[2018-08-27 11:27] LABS: Glucose,Whole Blood 137 mg/dL (75-99)
--- NOTE | 2018-08-27 11:49 | P.PN ---
Subjective Progress Note Date: 08/27/18 This is a pleasant 78-year-old gentleman with known history of diabetes, hypertension, hyperlipidemia, hiatal hernia with prior surgery, aortic stenosis for which the patient underwent TaVR at [facility] about a year and a half ago, he did undergo cardiac catheterization in 2016 which r evealed minor noncritical disease of the right dominant system, no significant pulmonary hypertension. He has advanced Alzheimer's dementia, his cares for him at home. She noticed yesterday that he was complaining of some epigastric discomfort, quite tender on palpation of the chest. He does have a prominent bony spot in that area, believed to be from a prior several years ago. According to the this was the area where he was quite tender yesterday. Patient had no associated diaphoresis, shortness of breath or nausea. At the time of my examination this morning he is currently chest pain-free. The patient used to follow with Dr. Adamaris De La Cruz, he now follows with a Dr. Cortes in [facility] as his finance broker. Chest x-ray performed on admission did not reveal any acute findings. His EKG showed a sinus bradycardia with no acute changes noted. Subsequent morning EKG shows same. Blood pressure 132/70 with a heart rate in the 80s, 95% on room air. White blood cell count 5.5, hemoglobin 13.2, platelet count 270. Sodium 141, potassium 4.3, BUN 21 and creatinine 0.8. Magnesium level I.7. AST 14 ALT 21 alk phos 46. Amylase 161 lipase 273. Troponins have been negative 3. As mentioned, this morning patient is quite comfortable resting in bed, denies any chest pain, chest wall tenderness is no longer present today. 08/27/2018 Patient was seen and examined this morning, denies any chest discomfort, echo revealed normal left ventricular systolic function. His is at bedside. Objective - Vital Signs Vital signs: Vital Signs Temp 98.2 F 08/27/18 03:12 Pulse 68 08/27/18 08:34 Resp 18 08/27/18 08:34 BP 151/70 08/27/18 03:12 Pulse Ox 98 08/27/18 03:12 Intake & Output 08/26/18 08/27/18 08/27/18 18:59 06:59 18:59 Intake Total 1110.933 250 240 Output Total 300 300 Balance 810.933 -50 240 Weight 60 kg Intake: IV 20 10 Invasive Line 1 20 10 Intake, IV Titration 130.933 Amount Heparin Sod,Pork in 0.45% 130.933 NaCl 25,000 unit In 0.45 % NaCl 1 250ml.bag @ 12 UNITS/KG/HR 9.308 mls/hr IV .Q24H JOHNATHON Rx#: [id number] Oral 960 240 240 Output: Urine 300 300 Other: Voiding Method Urinal Urinal Urinal # Voids 1 1 - Exam PHYSICAL EXAMINATION: GENERAL: 78-year-old gentleman in no acute distress at the time of my examination HEENT: Head is atraumatic, normocephalic. Pupils equal, round. Sclera a nicteric. Conjunctiva are clear. Mucous membranes of the mouth are moist. Neck is supple. There is no elevated jugular venous pressure. No carotid bruit is heard. HEART EXAMINATION: Heart S1 S2 1 systolic murmur is heard CHEST EXAMINATION: Lungs are clear to auscultation and precussion. No chest wall tenderness is noted on palpation or with deep breathing. ABDOMEN: Soft, nontender. Bowel sounds are heard. No organomegaly noted. EXTREMITIES: 2+ peripheral pulses with no evidence of peripheral edema and no calf tenderness noted. NEUROLOGIC patient is awake, alert and oriented 1 . . - Labs CBC & Chem 7: 08/26/18 06:25 08/25/18 11:40 Labs: Abnormal Lab Results - Last 24 Hours (Table) 08/25/18 08/26/18 08/27/18 Range/Units 11:40 16:11 06:02 POC Glucose (mg/dL) 143 H 107 H (75-99) mg/dL Hemoglobin A1c 7.9 H (4.0-6.0) % 08/27/18 Range/Units 11:23 POC Glucose (mg/dL) 137 H (75-99) mg/dL Hemoglobin A1c (4.0-6.0) % Assessment and Plan Plan: Assessment and plan #1 mid epigastric pain, atypical for acute coronary syndrome. Troponins are negative 3. EKG shows a sinus bradycardia with no acute changes. #2 hypertension #3 diabetes #4 hyperlipidemia #5 Alzheimer's dementia #6 aortic stenosis with prior TAVR approximately a year and a half ago at [facility] #7 hiatal hernia with prior surgery Plan From cardiology's perspective, patient may be able to be discharged home once cleared by primary. He's been recommended to follow-up with his finance broker post discharge. DNP note has been reviewed, I agree with a documented findings and plan of care. Patient was seen and examined.
== END 2018-08-27 12:52 | disposition home or self-care (01) ==
LOC: EC 11:18 → 3SCARD 13:24
PROVIDERS: ADMIT Internal Medicine; ATTEND Internal Medicine
DX: R07.89 Other chest pain (principal); R10.13 Epigastric pain; R06.00 Dyspnea, unspecified; I11.9 Hypertensive heart disease without heart failure; E11.9 Type 2 diabetes mellitus without complications; R00.1 Bradycardia, unspecified; K21.9 Gastro-esophageal reflux disease without esophagitis; E78.5 Hyperlipidemia, unspecified; G30.9 Alzheimer's disease, unspecified; F02.80 Dementia in other diseases classified elsewhere, unspecified severity, without behavioral disturbance, psychotic disturbance, mood disturbance, and anxiety; E78.00 Pure hypercholesterolemia, unspecified; F41.9 Anxiety disorder, unspecified; M19.90 Unspecified osteoarthritis, unspecified site; H57.9 Unspecified disorder of eye and adnexa; H91.93 Unspecified hearing loss, bilateral; Z79.82 Long term (current) use of aspirin; Z79.84 Long term (current) use of oral hypoglycemic drugs; Z79.899 Other long term (current) drug therapy; Z91.013 Allergy to seafood; Z91.048 Other nonmedicinal substance allergy status; Z97.4 Presence of external hearing-aid; Z85.831 Personal history of malignant neoplasm of soft tissue; Z87.11 Personal history of peptic ulcer disease; Z95.2 Presence of prosthetic heart valve; Z86.718 Personal history of other venous thrombosis and embolism; Z87.891 Personal history of nicotine dependence; Z83.3 Family history of diabetes mellitus; Z80.9 Family history of malignant neoplasm, unspecified; Z82.49 Family history of ischemic heart disease and other diseases of the circulatory system
CPT/HCPCS: 96376 ×3; 96366 ×3; 96365; 96375; 99291; 36415; 94760; 93005; 93306; 80061; 80053; 82150; 83690; 83735; 84484 ×2; 85025 ×2; 85610; 85730 ×2; 83036; 71046; G0378 ×3; J2060 ×3; J1644 ×3

== ENCOUNTER 2020-10-11 15:17 | Observation (INO) | payer MEDICARE ==
[2020-10-11 16:05] LABS: Glucose,Whole Blood 308 mg/dL (75-99)
[2020-10-11] MEDS ORDERED: SODIUM CHLORIDE 0.9% 500 ML 500 ML IV STA (16:17)
[2020-10-11 16:29] LABS: Basophils # (A) 0.1 k/uL (0-0.2); Basophils % (A) 1 %; Eosinophils % (A) 0 %; HCT 44.1 % (39.0-53.0); HGB 14.3 gm/dL (13.0-17.5); Lymphocytes # (A) 1.2 k/uL (1.0-4.8); Lymphocytes % (A) 9 %; MCH 29.3 pg (25.0-35.0); MCHC 32.4 g/dL (31.0-37.0); MCV 90.4 fL (80.0-100.0); Mean Platelet Volume 7.9; Monocytes # (A) 0.9 k/uL (0-1.0); Monocytes % (A) 7 %; Neutrophils # (A) 11.3 k/uL (1.3-7.7); Neutrophils % (A) 83 %; Platelet Count 199 k/uL (150-450); RBC 4.88 m/uL (4.30-5.90); RDW 15.2 % (11.5-15.5); WBC 13.6 k/uL (3.8-10.6)
--- NOTE | 2020-10-11 16:29 | ED ---
General Adult HPI - General Chief complaint: Weakness Stated complaint: Legs giving out Time Seen by Provider: 10/11/20 15:35 Source: patient, family, RN notes reviewed, old records reviewed Mode of arrival: ambulatory Limitations: altered mental status - History of Present Illness Initial comments: This is an 80-year-old male who presents to the emergency department with his . Patient lives in assisted living facility and they noted about 9:00 this morning he was too weak to walk on his own which is unusual. There appears to be no focal weakness according to the she does not nose any weakness one side to the other however she states CT appears to lean to the right a little bit but he has no facial droop and his speech is normal. Patient has had no recent fever chills or cough that she knows of. Patient has had no difficulty breathing patient does not appear to be in any distress there is been no trauma reported to her. Patient is unable to give any history on his own. - Related Data Home Medications Medication Instructions Recorded Confirmed Aspirin EC [Ecotrin Low Dose] 81 mg PO DAILY@0700 02/14/15 10/11/20 Glimepiride [Amaryl] 2 mg PO AC-BID@0700,1600 02/14/15 10/11/20 Losartan Potassium [Cozaar] 100 mg PO DAILY@0702/14/15 10/11/20 Multivitamins, Thera [Multivitamin 1 tab PO DAILY@0700 02/14/15 10/11/20 (formulary)] Pioglitazone [Actos] 45 mg PO DAILY@0700 02/14/15 10/11/20 metFORMIN HCL [Glucophage] 1,000 mg PO BID@0700,1600 02/14/15 10/11/20 Cholecalciferol [Vitamin D3 (25 2,000 unit PO DAILY@00 08/25/18 10/11/20 Mcg = 1000 Iu)] Donepezil [Aricept] 10 mg PO HS@1900 08/25/18 10/11/20 Ferrous Sulfate [Iron (65 MG 325 mg PO DAILY@00 08/25/18 10/11/20 Elemental)] Memantine HCl [Namenda Xr] 28 mg PO HS@1900 08/25/18 10/11/20 QUEtiapine [SEROquel] 50 mg PO TID PRN 08/25/18 10/11/20 Rosuvastatin [Crestor] 20 mg PO HS@1900 08/25/18 10/11/20 amLODIPine [Norvasc] 5 mg PO DAILY@1900 08/25/18 10/11/20 Divalproex ER [Depakote ER] 250 mg PO BID@0700,1900 10/11/20 10/11/20 Glimepiride [Amaryl] 2 mg PO AC-BID@0700,1600 PRN 10/11/20 10/11/20 Tamsulosin HCl [Flomax] 0.4 mg PO DAILY@0700 10/11/20 10/11/20 Allergies Allergy/AdvReac Type Severity Reaction Status Date / Time iodine Allergy Severe PASSES OUT Verified 10/11/20 16:19 shellfish derived [Shellfish] Allergy PASSES OUT Verified 10/11/20 16:19 Review of Systems ROS Statement: Those systems with pertinent positive or pertinent negative responses have been documented in the HPI. ROS Other: All systems not noted in ROS Statement are negative. Past Medical History Past Medical History: Cancer, Dementia, Diabetes Mellitus, Eye Disorder, GERD/Reflux, Hearing Disorder / Deafness, Hyperlipidemia, Hypertension, Memory Impairment, Osteoarthritis (OA) Additional Past Medical History / Comment(s): PT WAS TOLD SEVERE AORTIC STENOSIS,HEART MURMUR SINCE A CHILD,HX STOMACH ULCER, HX SARCOMA LEFT LEG-LIMPS SINCE 2004,GLASSES DAILY USE, [place] ALIDA. 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 TO REMOVE TUMOR, HIATAL HERNIA SURGERY, RT CTR, COLONOSCOPIES, heart valve replacement Past Anesthesia/Blood Transfusion Reactions: No Reported Reaction Past Psychological History: Anxiety Smoking Status: Former smoker Past Alcohol Use History: None Reported Past Drug Use History: None Reported - Past Family History Mother Family Medical History: Cancer, Diabetes Mellitus, Hypertension Additional Family Medical History / Comment(s): UNKNOWN TYPE OF CA Father Family Medical History: No Reported History Additional Family Medical History / Comment(s): PT'S FATHER WHEN PT WAS A BABY IN A MVA General Exam - General Exam Comments Initial Comments: GENERAL: Patient is well-developed and well-nourished. Patient is nontoxic and well- hydrated and is in no acute distress. ENT: Neck is soft and supple. No significant lymphadenopathy is noted. Oropharynx is clear. Moist mucous membranes. Neck has full range of motion without eliciting any pain. EYES: The sclera were anicteric and conjunctiva were pink and moist. Extraocular movements were intact and pupils were equal round and reactive to light. Eyelids were unremarkable. PULMONARY: Unlabored respirations. Good breath sounds bilaterally. No audible rales rhonchi or wheezing was noted. CARDIOVASCULAR: There is a regular rate and rhythm without any murmurs gallops or rubs. ABDOMEN: Soft and nontender with normal bowel sounds. SKIN: Skin is clear with no lesions or rashes and otherwise unremarkable. NEUROLOGIC: Patient is alert and oriented times one. Cranial nerves II through XII are grossly intact. Motor and sensory are also intact. Normal speech, volume and content. Symmetrical smile. MUSCULOSKELETAL: Normal extremities with adequate strength and full range of motion. No lower extremity swelling or edema. No calf tenderness. LYMPHATICS: No significant lymphadenopathy is noted PSYCHIATRIC: According to the the patient is acting normally Limitations: altered mental status Course Vital Signs 10/11/20 10/11/20 10/11/20 15:32 15:48 16:18 Temperature 98.1 F Pulse Rate 92 83 83 Respiratory 20 18 Rate Blood Pressure 124/73 131/87 O2 Sat by Pulse 95 97 Oximetry 10/11/20 10/11/20 17:13 18:06 Temperature 99.1 F Pulse Rate 77 67 Respiratory 20 20 Rate Blood Pressure 123/62 121/57 O2 Sat by Pulse 94 L 95 Oximetry Medical Decision Making - Medical Decision Making EKG shows normal sinus rhythm at 82 bpm VT interval is 168 QRSs 84 QT interval 372 QTC is 434. Patient's EKG shows no ST segment elevation or depression. After all labs came back I tried to ambulate the patient though he was doing better than he was when he came in is still not back to the baseline according to the . Patient's mental status is still off according to the . I spoke with the patient risk in hospice agreed to admit the patient admitted the patient I wrote admitting orders - Lab Data Result diagrams: 10/11/20 16:19 10/11/20 16:19 Lab Results 10/11/20 10/11/20 10/11/20 Range/Units 15:45 16:19 16:19 WBC 13.6 H (3.8-10.6) k/uL RBC 4.88 (4.30-5.90) m/uL Hgb 14.3 (13.0-17.5) gm/dL Hct 44.1 (39.0-53.0) % MCV 90.4 (80.0-100.0) fL MCH 29.3 (25.0-35.0) pg MCHC 32.4 (31.0-37.0) g/dL RDW 15.2 (11.5-15.5) % Plt Count 199 (150-450) k/uL MPV 7.9 Neutrophils % 83 % Lymphocytes % 9 % Monocytes % 7 % Eosinophils % 0 % Basophils % 1 % Neutrophils # 11.3 H (1.3-7.7) k/uL Lymphocytes # 1.2 (1.0-4.8) k/uL Monocytes # 0.9 (0-1.0) k/uL Eosinophils # 0.0 (0-0.7) k/uL Basophils # 0.1 (0-0.2) k/uL PT 10.9 (9.0-12.0) sec INR 1.0 (<1.2) APTT 26.5 (22.0-30.0) sec Sodium (137-145) mmol/L Potassium (3.5-5.1) mmol/L Chloride (98-107) mmol/L Carbon Dioxide (22-30) mmol/L Anion Gap mmol/L BUN (9-20) mg/dL Creatinine (0.66-1.25) mg/dL Est GFR (CKD-EPI)AfAm (>60 ml/min/1.73 sqM) Est GFR (CKD-EPI)NonAf (>60 ml/min/1.73 sqM) Glucose (74-99) mg/dL POC Glucose (mg/dL) 308 H (75-99) mg/dL POC Glu Street Superintendent ID Joel Serenity Plasma Lactic Acid [place] (0.7-2.0) mmol/L Calcium (8.4-10.2) mg/dL Magnesium (1.6-2.3) mg/dL Total Bilirubin (0.2-1.3) mg/dL AST (17-59) U/L ALT (4-49) U/L Alkaline Phosphatase (38-126) U/L Troponin I (0.000-0.034) ng/mL Total Protein (6.3-8.2) g/dL Albumin (3.5-5.0) g/dL Urine Color Urine Appearance (Clear) Urine pH (5.0-8.0) Ur Specific [place] (1.001-1.035) Urine Protein (Negative) Urine Glucose (UA) (Negative) Urine Ketones (Negative) Urine Blood (Negative) Urine Nitrite (Negative) Urine Bilirubin (Negative) Urine Urobilinogen (<2.0) mg/dL Ur Leukocyte Esterase (Negative) 10/11/20 10/11/20 10/11/20 Range/Units 16:19 16:19 16:19 WBC (3.8-10.6) k/uL RBC (4.30-5.90) m/uL Hgb (13.0-17.5) gm/dL Hct (39.0-53.0) % MCV (80.0-100.0) fL MCH (25.0-35.0) pg MCHC (31.0-37.0) g/dL RDW (11.5-15.5) % Plt Count (150-450) k/uL MPV Neutrophils % % Lymphocytes % % Monocytes % % Eosinophils % % Basophils % % Neutrophils # (1.3-7.7) k/uL Lymphocytes # (1.0-4.8) k/uL Monocytes # (0-1.0) k/uL Eosinophils # (0-0.7) k/uL Basophils # (0-0.2) k/uL PT (9.0-12.0) sec INR (<1.2) APTT (22.0-30.0) sec Sodium 139 (137-145) mmol/L Potassium 4.6 (3.5-5.1) mmol/L Chloride 101 (98-107) mmol/L Carbon Dioxide 26 (22-30) mmol/L Anion Gap 12 mmol/L BUN 28 H (9-20) mg/dL Creatinine 1.47 H (0.66-1.25) mg/dL Est GFR (CKD-EPI)AfAm 51 (>60 ml/min/1.73 sqM) Est GFR (CKD-EPI)NonAf 45 (>60 ml/min/1.73 sqM) Glucose 313 H (74-99) mg/dL POC Glucose (mg/dL) (75-99) mg/dL POC Glu Street Superintendent ID Plasma Lactic Acid [place] 1.5 (0.7-2.0) mmol/L Calcium 9.3 (8.4-10.2) mg/dL Magnesium 1.8 (1.6-2.3) mg/dL Total Bilirubin 0.4 (0.2-1.3) mg/dL AST 17 (17-59) U/L ALT 7 (4-49) U/L Alkaline Phosphatase 58 (38-126) U/L Troponin I <0.012 (0.000-0.034) ng/mL Total Protein 6.7 (6.3-8.2) g/dL Albumin 4.3 (3.5-5.0) g/dL Urine Color Urine Appearance (Clear) Urine pH (5.0-8.0) Ur Specific [place] (1.001-1.035) Urine Protein (Negative) Urine Glucose (UA) (Negative) Urine Ketones (Negative) Urine Blood (Negative) Urine Nitrite (Negative) Urine Bilirubin (Negative) Urine Urobilinogen (<2.0) mg/dL Ur Leukocyte Esterase (Negative) 10/11/20 Range/Units 17:59 WBC (3.8-10.6) k/uL RBC (4.30-5.90) m/uL Hgb (13.0-17.5) gm/dL Hct (39.0-53.0) % MCV (80.0-100.0) fL MCH (25.0-35.0) pg MCHC (31.0-37.0) g/dL RDW (11.5-15.5) % Plt Count (150-450) k/uL MPV Neutrophils % % Lymphocytes % % Monocytes % % Eosinophils % % Basophils % % Neutrophils # (1.3-7.7) k/uL Lymphocytes # (1.0-4.8) k/uL Monocytes # (0-1.0) k/uL Eosinophils # (0-0.7) k/uL Basophils # (0-0.2) k/uL PT (9.0-12.0) sec INR (<1.2) APTT (22.0-30.0) sec Sodium (137-145) mmol/L Potassium (3.5-5.1) mmol/L Chloride (98-107) mmol/L Carbon Dioxide (22-30) mmol/L Anion Gap mmol/L BUN (9-20) mg/dL Creatinine (0.66-1.25) mg/dL Est GFR (CKD-EPI)AfAm (>60 ml/min/1.73 sqM) Est GFR (CKD-EPI)NonAf (>60 ml/min/1.73 sqM) Glucose (74-99) mg/dL POC Glucose (mg/dL) (75-99) mg/dL POC Glu Street Superintendent ID Plasma Lactic Acid Albert (0.7-2.0) mmol/L Calcium (8.4-10.2) mg/dL Magnesium (1.6-2.3) mg/dL Total Bilirubin (0.2-1.3) mg/dL AST (17-59) U/L ALT (4-49) U/L Alkaline Phosphatase (38-126) U/L Troponin I (0.000-0.034) ng/mL Total Protein (6.3-8.2) g/dL Albumin (3.5-5.0) g/dL Urine Color Yellow Urine Appearance Clear (Clear) Urine pH 6.5 (5.0-8.0) Ur Specific [place] 1.017 (1.001-1.035) Urine Protein Trace H (Negative) Urine Glucose (UA) 2+ H (Negative) Urine Ketones Trace H (Negative) Urine Blood Negative (Negative) Urine Nitrite Negative (Negative) Urine Bilirubin Negative (Negative) Urine Urobilinogen <2.0 (<2.0) mg/dL Ur Leukocyte Esterase Negative (Negative) Disposition Clinical Impression: Generalized weakness, Altered mental status Disposition: ADMITTED IP TO THIS HOSP Referrals: Adrián Martinez MD [Primary Care Provider] - 1-2 days Time of Disposition: 20:18
[2020-10-11 16:39] LABS: Albumin 4.3 g/dL (3.5-5.0); Calcium 9.3 mg/dL (8.4-10.2); Magnesium 1.8 mg/dL (1.6-2.3); Potassium 4.6 mmol/L (3.5-5.1); Total Bilirubin 0.4 mg/dL (0.2-1.3); Total Protein 6.7 g/dL (6.3-8.2)
[2020-10-11 16:54] LABS: Partial Thromboplastin Time 26.5 sec (22.0-30.0); Prothrombin Time 10.9 sec (9.0-12.0)
--- NOTE | 2020-10-11 17:12 | CT ---
EXAM: CT brain wo con CLINICAL HISTORY: Confusion and weakness. COMPARISON: MR 04/04/2016. TECHNIQUE: Contiguous axial noncontrast images of the brain were obtained. Coronal and sagittal refor mats were generated and reviewed. Automated dose control was used for this exam. FINDINGS: There is no evidence for intracranial hemorrhage, mass effect or midline shift. There is moderate par enchymal volume loss. The white matter is grossly preserved. Ventricular size and configuration is within normal limits for degree of parenchymal volume. The paranasal sinuses are clear. The mastoid air cells are clear. No evidence for calvarial fracture. IMPRESSION: No acute intracranial abnormality.
--- NOTE | 2020-10-11 17:49 | XR ---
EXAMINATION TYPE: XR chest 2V DATE OF EXAM: 10/11/2020 COMPARISON: NONE HISTORY: Altered mental status and weakness. TECHNIQUE: Frontal and lateral views of the chest are obtained. FINDINGS: There is mild to moderate bibasilar streaky opacities. No significant pleural effusion, or pneumothorax seen. The cardiac silhouette size is borderline enlarged. The osseous structures are intact. Aortic valve replacement seen. IMPRESSION: Mild to moderate bibasilar infiltrates versus atelectasis.
[2020-10-11 18:09] LABS: Appearance,Urine Clear (Clear); Bilirubin,Urine Negative (Negative); Blood,Urine Negative (Negative); Color,Urine Yellow; Glucose,Urine (UA) 2+ (Negative); Ketones,Urine Trace (Negative); Leukocyte Esterase,Urine Negative (Negative); Nitrite,Urine Negative (Negative); PH, Urine 6.5 (5.0-8.0); Protein,Urine Trace (Negative); Specific Gravity,Urine 1.017 (1.001-1.035); Urobilinogen,Urine <2.0 mg/dL (<2.0)
[2020-10-11] MEDS ORDERED: INSULIN ASPART (NovoLOG) 100 UNIT/ML VIAL SQ ONE (19:56)
[2020-10-11] MEDS ORDERED: hydrALAZINE HCL 20 MG/ML 1 ML VIAL IVP STA (19:56)
[2020-10-11] MEDS ORDERED: SODIUM CHLORIDE 0.9% 1,000 ML IV ONE (20:18)
[2020-10-11] MEDS ORDERED: QUEtiapine 25 MG TAB PO SCH (21:45)
[2020-10-11] MEDS: DIVALPROEX ER 250 MG TAB.ER.24H PO SCH (22:12)
[2020-10-12 06:42] LABS: Glucose,Whole Blood 158 mg/dL (75-99)
[2020-10-12] MEDS: FAMOTIDINE 20 MG/2 ML VIAL IV SCH ×2 (08:07→19:47)
[2020-10-12] MEDS: HEPARIN SODIUM,PORCINE/PF 5,000 UNIT/0.5 ML SYRINGE SQ SCH ×2 (08:08→19:47)
[2020-10-12] MEDS: MEMANTINE 10 MG TAB PO SCH ×2 (08:08→19:46)
[2020-10-12] MEDS: DIVALPROEX ER 250 MG TAB.ER.24H PO SCH ×2 (08:09→19:46)
[2020-10-12 08:30] LABS: ALT <6 U/L (4-49); AST 17 U/L (17-59); African American GFR (CKD) 81 (>60 ml/min/1.73 sqM); Albumin 3.4 g/dL (3.5-5.0); Albumin/Globulin Ratio 1.6; Alkaline Phosphatase 35 U/L (38-126); Anion Gap 4 mmol/L; Bilirubin,Unconjugated 0.4 mg/dL (0.0-1.1); Blood Urea Nitrogen 25 mg/dL (9-20); Calcium 8.5 mg/dL (8.4-10.2); Carbon Dioxide 27 mmol/L (22-30); Chloride 110 mmol/L (98-107); Globulin 2.1 g/dL; Glucose 163 mg/dL (74-99); Magnesium 1.9 mg/dL (1.6-2.3); Non-African American GFR(CKD) 70 (>60 ml/min/1.73 sqM); Sodium 141 mmol/L (137-145); Total Bilirubin 0.5 mg/dL (0.2-1.3); Total Protein 5.5 g/dL (6.3-8.2)
[2020-10-12 08:33] LABS: Glucose,Whole Blood 149 mg/dL (75-99)
[2020-10-12 08:34] LABS: Basophils % (A) 0 %; Eosinophils # (A) 0.1 k/uL (0-0.7); Eosinophils % (A) 1 %; HCT 38.9 % (39.0-53.0); HGB 12.6 gm/dL (13.0-17.5); Lymphocytes # (A) 1.5 k/uL (1.0-4.8); Lymphocytes % (A) 19 %; MCH 29.3 pg (25.0-35.0); MCHC 32.3 g/dL (31.0-37.0); MCV 90.6 fL (80.0-100.0); Mean Platelet Volume 7.9; Monocytes # (A) 0.5 k/uL (0-1.0); Monocytes % (A) 6 %; Neutrophils # (A) 5.7 k/uL (1.3-7.7); Neutrophils % (A) 73 %; Platelet Count 165 k/uL (150-450); RBC 4.29 m/uL (4.30-5.90); RDW 14.6 % (11.5-15.5); WBC 7.9 k/uL (3.8-10.6)
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
[2020-10-12 08:38] LABS: Potassium 4.4 mmol/L (3.5-5.1)
[2020-10-12 09:59] LABS: C Reactive Protein 17.5 mg/dL (<1.0)
[2020-10-12 12:32] LABS: Glucose,Whole Blood 317 mg/dL (75-99)
[2020-10-12] MEDS: INSULIN ASPART (NovoLOG) 100 UNIT/ML VIAL SQ SCH ×3 (12:47→20:28)
[2020-10-12 17:26] LABS: Glucose,Whole Blood 221 mg/dL (75-99)
[2020-10-12 18:34] LABS: Hemoglobin A1C 7.6 % (4.0-6.0)
[2020-10-12] MEDS: QUEtiapine 50 MG TAB PO PRN (19:46)
[2020-10-12] MEDS: amLODIPine 5 MG TAB PO SCH (19:48)
[2020-10-12] MEDS: DONEPEZIL 10 MG TAB PO SCH (19:50)
[2020-10-12 20:15] LABS: Glucose,Whole Blood 105 mg/dL (75-99)
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
--- NOTE | 2020-10-12 23:01 | US ---
EXAMINATION TYPE: US carotid duplex BILAT DATE OF EXAM: 10/12/2020 COMPARISON: CT, MR CLINICAL HISTORY: Possible TIA. Possible TIA. Altered mental status. EXAM MEASUREMENTS: RIGHT: Peak Systolic Velocity (PSV) cm/sec ----- Right CCA: 81.0 ----- Right ICA: 91.4 ----- Right ECA: 97.7 ICA/CCA ratio: 1.1 RIGHT: End Diastole cm/sec ----- Right CCA: 0.0 ----- Right ICA: 8.5 ----- Right ECA: 0.0 LEFT: Peak Systolic Velocity (PSV) cm/sec ----- Left CCA: 62.9 ----- Left ICA: 74.4 ----- Left ECA: 115.2 ICA/CCA ratio: 1.2 LEFT: End Diastole cm/sec ----- Left CCA: 0.0 ----- Left ICA: 9.0 ----- Left ECA: 6.9 VERTEBRALS (direction of flow): Right Vertebral: Antegrade Left Vertebral: Antegrade Rhythm: Normal Plaque seen within bilateral CCA, bilateral bulb, bilateral ECA, and bilateral ICA. No elevated veloc ities at this time. Exam is limited. -Hypoechoic area with hyperechoic center seen right neck: 1.5 x 1.0 x 0.6 cm. Limited exam. Altered mental status. Patient constantly moving and talking. IMPRESSION: There is antegrade flow in the vertebral arteries. There is bilateral plaque formation. There is less than 50% stenosis in both internal carotid arteries. Limited exam. Criteria for Assigning % of Stenosis / Diameter reduction (Estimation based on the indirect measurements of the internal carotid artery velocities (ICA PSV). 1. Normal (no stenosis)=ICA PSV < 125 cm/s: ratio < 2.0: ICA EDV<40 cm/s. 2. Less than 50% stenosis=ICA PSV < 125 cm/s: ratio < 2.0: ICA EDV<40 cm/s. 3. 50 to 69% stenosis=ICA PSV of 125 to 230 cm/s: ration 2.0 ? 4.0: ICA EDV 40-100 cm/s. 4. Greater than 70% stenosis to near occlusion= ICA PSV > 230 cm/s: ratio > 4.0: ICA EDV > 100 cm/s. 5. Near occlusion= ICA PSV velocities may be low or undetectable: variable ratio and ICA EDV. 6. Total occlusion=unable to detect flow.
[2020-10-13 00:22] LABS: Folate, Serum 22.8 ng/mL
[2020-10-13 07:00] LABS: Glucose,Whole Blood 145 mg/dL (75-99)
[2020-10-13] MEDS: CHOLECALCIFEROL 25 MCG (1000 IU) TABLET PO SCH (09:05)
[2020-10-13] MEDS: LOSARTAN 50 MG TAB PO SCH (09:05)
[2020-10-13] MEDS: FERROUS SULFATE 325 MG TAB PO SCH (09:05)
[2020-10-13] MEDS: ASPIRIN 81 MG PO SCH (09:05)
[2020-10-13] MEDS: TAMSULOSIN 0.4 MG CAP.ER.24H PO SCH (09:05)
[2020-10-13] MEDS: MEMANTINE 10 MG TAB PO SCH ×2 (09:05→22:32)
[2020-10-13] MEDS: MULTIVITAMINS, THERA 1 EACH TAB PO SCH (09:05)
[2020-10-13] MEDS: HEPARIN SODIUM,PORCINE/PF 5,000 UNIT/0.5 ML SYRINGE SQ SCH ×2 (09:06→22:31)
[2020-10-13] MEDS: INSULIN ASPART (NovoLOG) 100 UNIT/ML VIAL SQ SCH ×4 (09:06→22:54)
[2020-10-13] MEDS: DIVALPROEX ER 250 MG TAB.ER.24H PO SCH ×2 (09:06→22:38)
[2020-10-13] MEDS: FAMOTIDINE 20 MG/2 ML VIAL IV SCH ×2 (09:06→22:26)
--- NOTE | 2020-10-13 10:44 | ECHOF ---
Referral Reason:Possible TIA MEASUREMENTS -------- HEIGHT: 170.2 cm WEIGHT: 72.6 kg BP: 162/71 RVIDd: 3.1 cm (< 3.3) IVSd: 1.3 cm (0.6 - 1.1) LVIDd: 3.8 cm (3.9 - 5.3) LVPWd: 1.3 cm (0.6 - 1.1) IVSs: 1.9 cm LVIDs: 1.9 cm LVPWs: 1.4 cm LA Diam: 4.0 cm (2.7 - 3.8) Ao Diam: 2.8 cm (2.0 - 3.7) AV Cusp: 1.5 cm (1.5 - 2.6) MV EXCURSION: 10.325 mm (> 18.000) MV EF SLOPE: 18 mm/s (70 - 150) EPSS: 2.7 cm MV E Dariel: 0.90 m/s MV DecT: 326 ms MV A Dariel: 1.18 m/s MV E/A Ratio: 0.76 RAP: 5.00 mmHg RVSP: 23.73 mmHg FINDINGS -------- Sinus rhythm. This was a technically difficult study with suboptimal views. The left ventricular size is normal. There is mild concentric left ventricular hypertrophy. Overa ll left ventricular systolic function is normal with, an EF between 60 - 65 %. The right ventricle is normal in size. The left atrial size is normal. The right atrium is normal in size. The aortic valve is trileaflet, and appears structurally normal. No aortic stenosis or regurgitation. The mitral valve leaflets are moderately thickened. Severe mitral annular calcification present. Mild tricuspid regurgitation present. Right ventricular systolic pressure is normal at < 35 mmHg. The pulmonic valve was not well visualized. The aortic root size is normal. IVC Not well visulized. There is no pericardial effusion. CONCLUSIONS -------- 1. The left ventricular size is normal. 2. There is mild concentric left ventricular hypertrophy. 3. Overall left ventricular systolic function is normal with, an EF between 60 - 65 %. 4. The aortic valve is trileaflet, and appears structurally normal. No aortic stenosis or regurgitati on. 5. The mitral valve leaflets are moderately thickened. 6. Severe mitral annular calcification present. 7. Mild tricuspid regurgitation present. 8. There is no pericardial effusion. EDGE BANDER HAND: Shruthi Dumont RDCS
[2020-10-13 11:19] LABS: Basophils # (A) 0.05 X 10*3/uL (0.00-0.10); Basophils % (A) 0.9 %; Eosinophils # (A) 0.16 X 10*3/uL (0.04-0.35); HGB 12.3 g/dL (13.0-17.0); Lymphocytes # (A) 1.71 X 10*3/uL (0.90-5.00); Lymphocytes % (A) 32.3 %; MCH 33.4 pg (27.0-32.0); MCHC 35.1 g/dL (32.0-37.0); MCV 95.1 fL (80.0-97.0); Mean Platelet Volume 10.8 fL (9.5-12.2); Monocytes # (A) 0.52 X 10*3/uL (0.20-1.00); Monocytes % (A) 9.8 %; Neutrophils # (A) 2.84 X 10*3/uL (1.80-7.70); Neutrophils % (A) 53.8 %; Platelet Count 159 X 10*3/uL (140-440); RBC 3.68 X 10*6/uL (4.40-5.60); RDW 15.1 % (11.5-14.5); WBC 5.29 X 10*3/uL (4.50-10.00)
[2020-10-13 11:47] LABS: Glucose,Whole Blood 235 mg/dL (75-99)
--- NOTE | 2020-10-13 11:49 | XR ---
EXAMINATION TYPE: XR chest 1V DATE OF EXAM: 10/13/2020 COMPARISON: Chest x-ray 10/11/2020 HISTORY: Altered mental status, abnormal chest x-ray follow-up MR weakness TECHNIQUE: Single frontal view of the chest is obtained. FINDINGS: Aorta is dense. Cardiac mediastinal silhouette is stable. Patient is rotated, there may be spinal curvature. No evident airspace disease, pneumothorax, or pleural effusion. Interstitium is mi ldly increased. Bone mineralization is reduced. IMPRESSION: There is some improvement in lung volume, aeration as compared to prior exam. Possible m inimal residual basilar atelectasis versus scarring.
[2020-10-13] MEDS: PIPERACILLIN-TAZOBACTAM 3.375 GM in SODIUM CHLORIDE 0.9% 100 ML IVPB SCH ×2 (12:51→16:43)
[2020-10-13 13:53] LABS: African American GFR (CKD) 93.2 (60.0-200.0); Anion Gap 10.8 mmol/L (4.00-12.00); BUN/Creat Ratio 25.56 Ratio (12.00-20.00); Calcium 8.5 mg/dL (8.7-10.3); Carbon Dioxide 23.2 mmol/L (21.6-31.8); Chol/HDL Ratio 2.81; LDL Cholesterol,Calculated 56.6 mg/dL (0.0-131.0); Non-African American GFR(CKD) 80.4 (60.0-200.0); Potassium 4.2 mmol/L (3.5-5.5); VLDL Calculation 19.4 mg/dL (5.00-40.00)
[2020-10-13 16:47] LABS: Glucose,Whole Blood 330 mg/dL (75-99)
[2020-10-13] MEDS ORDERED: amLODIPine 5 MG TAB PO SCH (19:00)
[2020-10-13] MEDS ORDERED: DONEPEZIL 10 MG TAB PO SCH (19:00)
--- NOTE | 2020-10-13 21:24 | P.PN ---
Subjective This is a pleasant 80 years old male with past medical history of dementia, diabetes mellitus, GERD, hypertension, hyperlipidemia, osteoarthritis,. Patient lives in [facility]. living facility Patient is poor historian due to his dementia and mental changes. As per documentation patient , leg weakness, inability to walk and noticed patient is leaning to the right. Patient at baseline is confusion with history of dementia and alert to person. However when I went to see the patient he was awake and alert, not in distress, he does not answer my question, he does not follow commands, he just keeps tearing around. I talked to the yusef boston at [phone]. As per his baseline is confusion, he lives at assisted living, he does not talk, he does not ask for food or to be clean, however staff feed him and cleared him several times a day. Baseline he hardly knows his , for example last month when the came in this mild and he was telling people this is his girlfriend and his . However over the last week it looks like the patient could not recognize his either. He has dementia for 10 years and he has a neurologist as an outpatient No smoking or alcohol or illicit drugs Vitas looks stable, patient is saturating 93-96% on room air and he is afebrile. Labs showing mild leukocytosis of 13.6 K, hemoglobin and platelets are normal. INR is normal 1.0. Creatinine is elevated to 1.4, baseline is in within the reference range. Electrolytes with potassium and sodium are normal. Glucose 313 and 158. Liver enzymes not elevated. Troponin is negative less than 0.012. Urinalysis is not suspicious of infection showing only glucosuria. Valproic acid is 31.6 which is supple therapeutic EKG showing normal sinus rhythm at [address]-T changes, Chest x-ray: Mild to moderate basilar infiltrate versus atelectasis CT of the brain: No acute process. In the emergency room patient was started on normal sinus 75 mL/h, Seroquel twice a day and Depakote as well as hydralazine. 10/13/2020 Patient still somewhat confused and less interactive, . He is a stable Creatinine improved down to 0.9 and his CK T stage II currently. His CALCITONIN is also trended down to 1.2 down to 0.6. Hemoglobin A1c is 7.6% which is reasonable for his age. Vitamin B12 is on the low normal site at 363 and is replaced while for example is acceptable, echocardiogram showing ejection fraction of 60-65%, carotid duplex negative. EEG pending. Neurology service on the case and they added Plavix to his home dose of aspirin 81 mg. Also patient was significant history of dementia which might affect his mentation Patient started eating and his glucose more than 300, resume metformin. Actos and Nipride still on hold Patient has DO NOT RESUSCITATE order Review of Systems n/a. Patient does not talk or provide history Active Medications Generic Name Dose Route Start Last Admin Trade Name Freq PRN Reason Stop Dose Admin Amlodipine Besylate 5 mg 10/12/20 19:27 10/12/20 19:48 Amlodipine 5 Mg Tab PO 5 mg DAILY@1900 JOHNATHON Administration Aspirin 81 mg 10/13/20 07:00 10/13/20 09:05 Aspirin 81 Mg PO 81 mg DAILY@0700 JOHNATHON Administration Atorvastatin Calcium 40 mg 10/13/20 19:00 Atorvastatin 40 Mg Tab PO HS@1900 JOHNATHON Cholecalciferol 50 mcg 10/13/20 07:00 10/13/20 09:05 Cholecalciferol 25 Mcg (1000 Iu) Tablet PO 50 mcg DAILY@0700 JOHNATHON Administration Clopidogrel Bisulfate 75 mg 10/13/20 21:15 Clopidogrel 75 Mg Tab PO DAILY [facility] Divalproex Sodium 250 mg 10/11/20 21:45 10/13/20 09:06 Divalproex Er 250 Mg Tab.Er.24h PO 250 mg BID JOHNATHON Administration Donepezil HCl 10 mg 10/12/20 19:27 10/12/20 19:50 Donepezil 10 Mg Tab PO 10 mg HS@1900 JOHNATHON Administration Famotidine 20 mg 10/12/20 09:00 10/13/20 09:06 Famotidine 20 Mg/2 Ml Vial IV 20 mg Q12HR JOHNATHON Administration Ferrous Sulfate 325 mg 10/13/20 07:00 10/13/20 09:05 Ferrous Sulfate 325 Mg Tab PO 325 mg DAILY@0700 JOHNATHON Administration Heparin Sodium (Porcine) 5,000 unit 10/12/20 09:00 10/13/20 09:06 Heparin Sodium,Porcine/Pf 5,000 Unit/0.5 Ml Syringe SQ 5,000 unit Q12HR JOHNATHON Administration Piperacillin Sod/Tazobactam 100 mls @ 25 mls/hr 10/13/20 09:00 10/13/20 16:43 Sod 3.375 gm/ Sodium Chloride IVPB 25 mls/hr Q8H JOHNATHON Administration Insulin Aspart 0 unit 10/12/20 12:30 10/13/20 17:32 Insulin Aspart (Novolog) 100 Unit/Ml Vial SQ 6 unit ACHS JOHNATHON Administration Protocol Losartan Potassium 100 mg 10/13/20 07:00 10/13/20 09:05 Losartan 50 Mg Tab PO 100 mg DAILY@0700 JOHNATHON Administration Memantine 10 mg 10/12/20 21:00 10/13/20 09:05 Memantine 10 Mg Tab PO 10 mg BID JOHNATHON Administration Multivitamins 1 each 10/13/20 07:00 10/13/20 09:05 Multivitamins, Thera 1 Each Tab PO 1 each DAILY@0700 JOHNATHON Administration Quetiapine Fumarate 50 mg 10/12/20 07:21 10/12/20 19:46 Quetiapine 50 Mg Tab PO 50 mg TID PRN Administration Agitation Tamsulosin HCl 0.4 mg 10/13/20 07:00 10/13/20 09:05 Tamsulosin 0.4 Mg Cap.Er.24h PO 0.4 mg DAILY@0700 JOHNATHON Administration Objective - Vital Signs Vital signs: Vital Signs Temp 97.6 F 10/13/20 13:41 Pulse 61 10/13/20 13:41 Resp 18 10/13/20 13:41 BP 147/57 10/13/20 13:41 Pulse Ox 96 10/13/20 13:41 Intake & Output 10/13/20 10/13/20 10/14/20 06:59 18:59 06:59 Weight 72.575 kg Other: Voiding Method Diaper Diaper Incontinent Incontinent # Voids 2 2 - Exam -GENERAL: The patient is awake, staring in the air, does not follow commands, not in any acute distress. Well developed, well nourished. HEENT: Pupils are round and equally reacting to light. EOMI. No scleral icterus. No conjunctival pallor. Normocephalic, atraumatic. No pharyngeal erythema. No thyromegaly. CARDIOVASCULAR: S1 and S2 present. No murmurs, rubs, or gallops. PULMONARY: Chest is clear to auscultation, no wheezing or crackles. ABDOMEN: Soft, nontender, nondistended, normoactive bowel sounds. No palpable organomegaly. MUSCULOSKELETAL: No joint swelling or deformity. EXTREMITIES: No cyanosis, clubbing, or pedal edema. NEUROLOGICAL: Gross neurological examination did not reveal any focal defic - Labs CBC & Chem 7: 10/13/20 06:22 10/13/20 06:22 Labs: Abnormal Lab Results - Last 24 Hours (Table) 10/12/20 10/13/20 10/13/20 Range/Units 20:13 06:22 06:22 RBC 3.68 L (4.40-5.60) X 10*6/uL Hgb 12.3 L (13.0-17.0) g/dL Hct 35.0 L (39.6-50.0) % MCH 33.4 H (27.0-32.0) pg RDW 15.1 H (11.5-14.5) % Chloride 110 H (96-109) mmol/L BUN/Creatinine Ratio 25.56 H (12.00-20.00) Ratio Glucose 146 H (70-110) mg/dL POC Glucose (mg/dL) 105 H (75-99) mg/dL Calcium 8.5 L (8.7-10.3) mg/dL 10/13/20 10/13/20 10/13/20 Range/Units 06:58 11:45 16:46 RBC (4.40-5.60) X 10*6/uL Hgb (13.0-17.0) g/dL Hct (39.6-50.0) % MCH (27.0-32.0) pg RDW (11.5-14.5) % Chloride (96-109) mmol/L BUN/Creatinine Ratio (12.00-20.00) Ratio Glucose (70-110) mg/dL POC Glucose (mg/dL) 145 H 235 H 330 H (75-99) mg/dL Calcium (8.7-10.3) mg/dL Microbiology - Last 24 Hours (Table) 10/12/20 07:41 Blood Culture - Preliminary Blood No Growth after 24 hours Assessment and Plan Assessment: Altered mental status, mostly advanced/end stage dementia. Patient might be eligible for palliative consult, however wants to wait now Possible bilateral lower lobe atelectasis, pneumonia as possible with elevated procalcitonin Acute kidney injury most likely from dehydration , improved Low-normal vitamin B12, replaced History of seizure with subtherapeutic Dilantin level , level is acceptable Diabetes mellitus Hypertension Hyperlipidemia Dementia with history of agitation History of GERD Primary osteoarthritis benign prostatic hypertrophy Chronic kidney disease, stage II Plan: this is a pleasant 80 years old male who presents with altered mental status and WAYNE. bilateral pulmonary infiltrates suspicious for atelectasis/pneumonia. Follow-up consult neurology service. Workup was unremarkable for now except for low normal B12 which is been replaced. Echocardiogram, carotid duplex are negative. Follow-up EEG Hold losartan, hold diabetes medication included glimepiride, Actos , however resume metformin and continue with insulin sliding scale, Check a blood culture Most likely patient would need palliative consult which can be done as an outpatient, wanted to be treated and sent back to his assisted living Labs and medication were reviewed.. Continue same treatment. Continue with symptomatic treatment. Resume home medication. Monitor lytes and vitals. DVT and GI prophylaxis. Further recommendations depends on the clinical course of the patient DVT prophylaxis: Subcutaneous heparin GI Prophylaxis: Pepcid PT/OT: Pending Prognosis is guarded CODE STATUS: DO NOT RESUSCITATE per
[2020-10-13] MEDS: CYANOCOBALAMIN 1,000 MCG/ML 1 ML VIAL IM SCH ×2 (21:35→22:31)
[2020-10-13] MEDS: ATORVASTATIN 40 MG TAB PO SCH (22:32)
[2020-10-13] MEDS: amLODIPine 5 MG TAB PO SCH (22:32)
[2020-10-13] MEDS: DONEPEZIL 10 MG TAB PO SCH (22:32)
[2020-10-13] MEDS: CLOPIDOGREL 75 MG TAB PO SCH (22:38)
[2020-10-13 22:42] LABS: Glucose,Whole Blood 110 mg/dL (75-99)
--- NOTE | 2020-10-14 00:12 | P.PN ---
Subjective Progress Note Date: 10/13/20 Patient was seen for a follow-up. Patient is laying in the bed, completely naked. Patient is very confused. Objective - Vital Signs Vital signs: Vital Signs Temp 97.6 F 10/13/20 13:41 Pulse 61 10/13/20 13:41 Resp 18 10/13/20 13:41 BP 147/57 10/13/20 13:41 Pulse Ox 96 10/13/20 13:41 Intake & Output 10/12/20 10/13/20 10/13/20 18:59 06:59 18:59 Weight 72.575 kg Other: Voiding Method Diaper Diaper Incontinent Incontinent # Voids 2 - Exam Patient smiles, very limited speech. Patient is completely naked. Minimally covered by the bedding. Moves all 4 activities equally. - Labs CBC & Chem 7: 10/13/20 06:22 10/13/20 06:22 Labs: Abnormal Lab Results - Last 24 Hours (Table) 10/12/20 10/12/20 10/12/20 Range/Units 07:41 17:23 20:13 RBC (4.40-5.60) X 10*6/uL Hgb (13.0-17.0) g/dL Hct (39.6-50.0) % MCH (27.0-32.0) pg RDW (11.5-14.5) % Chloride (96-109) mmol/L BUN/Creatinine Ratio (12.00-20.00) Ratio Glucose (70-110) mg/dL POC Glucose (mg/dL) 221 H 105 H (75-99) mg/dL Hemoglobin A1c 7.6 H (4.0-6.0) % Calcium (8.7-10.3) mg/dL 10/13/20 10/13/20 10/13/20 Range/Units 06:22 06:22 06:58 RBC 3.68 L (4.40-5.60) X 10*6/uL Hgb 12.3 L (13.0-17.0) g/dL Hct 35.0 L (39.6-50.0) % MCH 33.4 H (27.0-32.0) pg RDW 15.1 H (11.5-14.5) % Chloride 110 H (96-109) mmol/L BUN/Creatinine Ratio 25.56 H (12.00-20.00) Ratio Glucose 146 H (70-110) mg/dL POC Glucose (mg/dL) 145 H (75-99) mg/dL Hemoglobin A1c (4.0-6.0) % Calcium 8.5 L (8.7-10.3) mg/dL 10/13/20 Range/Units 11:45 RBC (4.40-5.60) X 10*6/uL Hgb (13.0-17.0) g/dL Hct (39.6-50.0) % MCH (27.0-32.0) pg RDW (11.5-14.5) % Chloride (96-109) mmol/L BUN/Creatinine Ratio (12.00-20.00) Ratio Glucose (70-110) mg/dL POC Glucose (mg/dL) 235 H (75-99) mg/dL Hemoglobin A1c (4.0-6.0) % Calcium (8.7-10.3) mg/dL Microbiology - Last 24 Hours (Table) 10/12/20 07:41 Blood Culture - Preliminary Blood No Growth after 24 hours Assessment and Plan Assessment: * Sudden onset episode of generalized weakness, and inability to get up from the chair, unclear etiology. No focal symptoms reported. Rule out TIA. No obvious metabolic cause is identified. 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 Patient is very disoriented. He has limited speech. * Diabetes * Hypertension * Hyperlipidemia * X tobacco use Plan: * Patient will undergo TIA workup * Carotid Doppler revealed antegrade flow in the vertebral arteries. There is bilateral plaque formation. There is less than 50% stenosis in both ICAs. * 2-D echo revealed normal left-ventricular size. Mild concentric LVH. EF is 60-65%. No aortic stenosis or regurgitation. Severe mitral annular calcification. Mitral valve leaflets are moderately thickened. * B12 363, folate 22.8. TSH is normal 2.03, Depakote level is 31.6 which is fine. * Fasting lipid panel with cholesterol 118, HDL 42, LDL 56 and triglycerides 97. * Hemoglobin A1c 7.6. Suggest optimize control of diabetes to target A1c <7.0. * Telemetry monitoring rule out arrhythmia. * We will switch from aspirin to Plavix 75 mg daily. * Patient never has any history of seizures. Depakote is prescribed for mood stabilization. * Patient continues to have altered mental status. We will check EEG. * If behavioral problems continue, then consider psych consult.
[2020-10-14] MEDS: PIPERACILLIN-TAZOBACTAM 3.375 GM in SODIUM CHLORIDE 0.9% 100 ML IVPB SCH ×4 (00:37→23:55)
[2020-10-14 07:11] LABS: Glucose,Whole Blood 146 mg/dL (75-99)
[2020-10-14] MEDS ORDERED: QUEtiapine 25 MG TAB PO STA (08:59)
[2020-10-14] MEDS: LOSARTAN 50 MG TAB PO SCH (09:21)
[2020-10-14] MEDS: MEMANTINE 10 MG TAB PO SCH ×2 (09:21→19:59)
[2020-10-14] MEDS: ASPIRIN 81 MG PO SCH (09:21)
[2020-10-14] MEDS: CHOLECALCIFEROL 25 MCG (1000 IU) TABLET PO SCH (09:21)
[2020-10-14] MEDS: CLOPIDOGREL 75 MG TAB PO SCH (09:22)
[2020-10-14] MEDS: QUEtiapine 50 MG TAB PO PRN (09:22)
[2020-10-14] MEDS: MULTIVITAMINS, THERA 1 EACH TAB PO SCH (09:22)
[2020-10-14] MEDS: FERROUS SULFATE 325 MG TAB PO SCH (09:22)
[2020-10-14] MEDS: TAMSULOSIN 0.4 MG CAP.ER.24H PO SCH (09:22)
[2020-10-14] MEDS: HEPARIN SODIUM,PORCINE/PF 5,000 UNIT/0.5 ML SYRINGE SQ SCH ×2 (09:23→20:03)
[2020-10-14] MEDS: INSULIN ASPART (NovoLOG) 100 UNIT/ML VIAL SQ SCH ×4 (10:31→20:04)
[2020-10-14] MEDS: DIVALPROEX ER 250 MG TAB.ER.24H PO SCH ×2 (10:31→19:59)
[2020-10-14] MEDS: FAMOTIDINE 20 MG/2 ML VIAL IV SCH ×2 (10:31→20:00)
[2020-10-14 11:48] LABS: Basophils # (A) 0.05 X 10*3/uL (0.00-0.10); Basophils % (A) 1.1 %; Eosinophils # (A) 0.16 X 10*3/uL (0.04-0.35); Eosinophils % (A) 3.7 %; HCT 35.3 % (39.6-50.0); HGB 12.7 g/dL (13.0-17.0); Lymphocytes # (A) 1.47 X 10*3/uL (0.90-5.00); Lymphocytes % (A) 33.8 %; MCH 33.7 pg (27.0-32.0); MCV 93.6 fL (80.0-97.0); Monocytes # (A) 0.38 X 10*3/uL (0.20-1.00); Monocytes % (A) 8.7 %; Neutrophils # (A) 2.28 X 10*3/uL (1.80-7.70); Neutrophils % (A) 52.5 %; Platelet Count 177 X 10*3/uL (140-440); RBC 3.77 X 10*6/uL (4.40-5.60); RDW 14.4 % (11.5-14.5); WBC 4.35 X 10*3/uL (4.50-10.00)
[2020-10-14 11:54] LABS: African American GFR (CKD) 93.2 (60.0-200.0); BUN/Creat Ratio 26.67 Ratio (12.00-20.00); Calcium 8.9 mg/dL (8.7-10.3); Non-African American GFR(CKD) 80.4 (60.0-200.0)
[2020-10-14 11:56] LABS: Glucose,Whole Blood 223 mg/dL (75-99)
--- NOTE | 2020-10-14 14:11 | P.PN ---
Subjective This is a pleasant 80 years old male with past medical history of dementia, diabetes mellitus, GERD, hypertension, hyperlipidemia, osteoarthritis,. Patient lives in [facility]. living facility Patient is poor historian due to his dementia and mental changes. As per documentation patient , leg weakness, inability to walk and noticed patient is leaning to the right. Patient at baseline is confusion with history of dementia and alert to person. However when I went to see the patient he was awake and alert, not in distress, he does not answer my question, he does not follow commands, he just keeps tearing around. I talked to the yusef boston at [phone]. As per his baseline is confusion, he lives at assisted living, he does not talk, he does not ask for food or to be clean, however staff feed him and cleared him several times a day. Baseline he hardly knows his , for example last month when the came in this mild and he was telling people this is his girlfriend and his . However over the last week it looks like the patient could not recognize his either. He has dementia for 10 years and he has a neurologist as an outpatient No smoking or alcohol or illicit drugs Vitas looks stable, patient is saturating 93-96% on room air and he is afebrile. Labs showing mild leukocytosis of 13.6 K, hemoglobin and platelets are normal. INR is normal 1.0. Creatinine is elevated to 1.4, baseline is in within the reference range. Electrolytes with potassium and sodium are normal. Glucose 313 and 158. Liver enzymes not elevated. Troponin is negative less than 0.012. Urinalysis is not suspicious of infection showing only glucosuria. Valproic acid is 31.6 which is supple therapeutic EKG showing normal sinus rhythm at [address]-T changes, Chest x-ray: Mild to moderate basilar infiltrate versus atelectasis CT of the brain: No acute process. In the emergency room patient was started on normal sinus 75 mL/h, Seroquel twice a day and Depakote as well as hydralazine. 10/13/2020 Patient still somewhat confused and less interactive, . He is a stable Creatinine improved down to 0.9 and his CK T stage II currently. His CALCITONIN is also trended down to 1.2 down to 0.6. Hemoglobin A1c is 7.6% which is reasonable for his age. Vitamin B12 is on the low normal site at 363 and is replaced while for example is acceptable, echocardiogram showing ejection fraction of 60-65%, carotid duplex negative. EEG pending. Neurology service on the case and they added Plavix to his home dose of aspirin 81 mg. Also patient was significant history of dementia which might affect his mentation Patient started eating and his glucose more than 300, resume metformin. Actos and Nipride still on hold Patient has DO NOT RESUSCITATE order 10/14/2020 Patient looks slightly better today as he is following some simple commands but not all the comments. He does not answer questions about he only could tell me his name Ashwin. Is still confused and disoriented into the surroundings. He is able to eat his meals. He does not look in distress his come in bed. Physical glucose is better controlled around 152-20 after starting metformin. Keep Actos and Amaryl on hold, Colace medication probable the patient might have hypoglycemia before coming to the hospital. Keep losartan on hold. procalcitonin is trending down to 0.6. Patient remains on Zosyn Prognosis is guarded Objective - Vital Signs Vital signs: Vital Signs Temp 97.6 F 10/14/20 07:53 Pulse 56 L 10/14/20 08:00 Resp 13 10/14/20 08:00 BP 163/64 10/14/20 07:53 Pulse Ox 94 L 10/14/20 07:53 Intake & Output 10/13/20 10/14/20 10/14/20 18:59 06:59 18:59 Other: Voiding Method Diaper Diaper Diaper Incontinent Incontinent Incontinent # Voids 2 1 - Exam -GENERAL: The patient is awake, staring in the air, does not follow commands, not in any acute distress. Well developed, well nourished. HEENT: Pupils are round and equally reacting to light. EOMI. No scleral icterus. No conjunctival pallor. Normocephalic, atraumatic. No pharyngeal erythema. No thyromegaly. CARDIOVASCULAR: S1 and S2 present. No murmurs, rubs, or gallops. PULMONARY: Chest is clear to auscultation, no wheezing or crackles. ABDOMEN: Soft, nontender, nondistended, normoactive bowel sounds. No palpable organomegaly. MUSCULOSKELETAL: No joint swelling or deformity. EXTREMITIES: No cyanosis, clubbing, or pedal edema. NEUROLOGICAL: Gross neurological examination did not reveal any focal defic - Labs CBC & Chem 7: 10/14/20 06:53 10/14/20 06:53 Labs: Abnormal Lab Results - Last 24 Hours (Table) 10/13/20 10/13/20 10/13/20 Range/Units 06:22 06:22 16:46 WBC (4.50-10.00) X 10*3/uL RBC (4.40-5.60) X 10*6/uL Hgb (13.0-17.0) g/dL Hct (39.6-50.0) % MCH (27.0-32.0) pg Chloride 110 H (96-109) mmol/L BUN/Creatinine Ratio 25.56 H (12.00-20.00) Ratio Glucose 146 H (70-110) mg/dL POC Glucose (mg/dL) 330 H (75-99) mg/dL Calcium 8.5 L (8.7-10.3) mg/dL Procalcitonin 0.64 H (0.02-0.09) ng/mL 10/13/20 10/14/20 10/14/20 Range/Units 22:41 06:53 06:53 WBC 4.35 L (4.50-10.00) X 10*3/uL RBC 3.77 L (4.40-5.60) X 10*6/uL Hgb 12.7 L (13.0-17.0) g/dL Hct 35.3 L (39.6-50.0) % MCH 33.7 H (27.0-32.0) pg Chloride (96-109) mmol/L BUN/Creatinine Ratio 26.67 H (12.00-20.00) Ratio Glucose 171 H (70-110) mg/dL POC Glucose (mg/dL) 110 H (75-99) mg/dL Calcium (8.7-10.3) mg/dL Procalcitonin (0.02-0.09) ng/mL 10/14/20 10/14/20 Range/Units 07:10 11:55 WBC (4.50-10.00) X 10*3/uL RBC (4.40-5.60) X 10*6/uL Hgb (13.0-17.0) g/dL Hct (39.6-50.0) % MCH (27.0-32.0) pg Chloride (96-109) mmol/L BUN/Creatinine Ratio (12.00-20.00) Ratio Glucose (70-110) mg/dL POC Glucose (mg/dL) 146 H 223 H (75-99) mg/dL Calcium (8.7-10.3) mg/dL Procalcitonin (0.02-0.09) ng/mL Microbiology - Last 24 Hours (Table) 10/12/20 07:41 Blood Culture - Preliminary Blood No Growth after 48 hours Assessment and Plan Assessment: Altered mental status, mostly advanced/end stage dementia. Patient might be eligible for palliative consult, however wants to wait now Possible bilateral lower lobe atelectasis, pneumonia as possible with elevated procalcitonin Acute kidney injury most likely from dehydration , improved Low-normal vitamin B12, replaced History of seizure with subtherapeutic Dilantin level , level is acceptable Diabetes mellitus Hypertension Hyperlipidemia Dementia with history of agitation History of GERD Primary osteoarthritis benign prostatic hypertrophy Chronic kidney disease, stage II Plan: this is a pleasant 80 years old male who presents with altered mental status and WAYNE. bilateral pulmonary infiltrates suspicious for atelectasis/pneumonia. Follow-up consult neurology service. Workup was unremarkable for now except for low normal B12 which is been replaced. Echocardiogram, carotid duplex are negative. Follow-up EEG Hold losartan, hold diabetes medication included glimepiride, Actos , however resume metformin and continue with insulin sliding scale, Check a blood culture Most likely patient would need palliative consult which can be done as an outpatient, wanted to be treated and sent back to his assisted living Labs and medication were reviewed.. Continue same treatment. Continue with symptomatic treatment. Resume home medication. Monitor lytes and vitals. DVT and GI prophylaxis. Further recommendations depends on the clinical course of the patient DVT prophylaxis: Subcutaneous heparin GI Prophylaxis: Pepcid PT/OT: Pending Prognosis is guarded CODE STATUS: DO NOT RESUSCITATE per
[2020-10-14 17:03] LABS: Glucose,Whole Blood 163 mg/dL (75-99)
[2020-10-14] MEDS: amLODIPine 5 MG TAB PO SCH (19:59)
[2020-10-14] MEDS: DONEPEZIL 10 MG TAB PO SCH (19:59)
[2020-10-14] MEDS: ATORVASTATIN 40 MG TAB PO SCH (19:59)
[2020-10-14] MEDS: CYANOCOBALAMIN 1,000 MCG/ML 1 ML VIAL IM SCH (20:03)
[2020-10-14 20:50] LABS: Glucose,Whole Blood 183 mg/dL (75-99)
[2020-10-14] MEDS: metFORMIN 500 MG TAB PO SCH (23:55)
[2020-10-15 07:33] LABS: Glucose,Whole Blood 186 mg/dL (75-99)
[2020-10-15] MEDS: CLOPIDOGREL 75 MG TAB PO SCH (08:09)
[2020-10-15] MEDS: FERROUS SULFATE 325 MG TAB PO SCH (08:09)
[2020-10-15] MEDS: LOSARTAN 50 MG TAB PO SCH (08:09)
[2020-10-15] MEDS: MEMANTINE 10 MG TAB PO SCH (08:09)
[2020-10-15] MEDS: DIVALPROEX ER 250 MG TAB.ER.24H PO SCH (08:09)
[2020-10-15] MEDS: metFORMIN 500 MG TAB PO SCH (08:09)
[2020-10-15] MEDS: TAMSULOSIN 0.4 MG CAP.ER.24H PO SCH (08:09)
[2020-10-15] MEDS: CHOLECALCIFEROL 25 MCG (1000 IU) TABLET PO SCH (08:10)
[2020-10-15] MEDS: ASPIRIN 81 MG PO SCH (08:10)
[2020-10-15] MEDS: HEPARIN SODIUM,PORCINE/PF 5,000 UNIT/0.5 ML SYRINGE SQ SCH (08:10)
[2020-10-15] MEDS: MULTIVITAMINS, THERA 1 EACH TAB PO SCH (08:10)
[2020-10-15] MEDS: FAMOTIDINE 20 MG/2 ML VIAL IV SCH (08:10)
[2020-10-15] MEDS: INSULIN ASPART (NovoLOG) 100 UNIT/ML VIAL SQ SCH (08:10)
[2020-10-15] MEDS: PIPERACILLIN-TAZOBACTAM 3.375 GM in SODIUM CHLORIDE 0.9% 100 ML IVPB SCH (08:11)
[2020-10-15 08:17] VITALS: BP 165/73; PULSE 56; RESP 16; TEMP 97.4
--- NOTE | 2020-10-15 09:55 | P.DS ---
Providers Date of admission: 10/11/20 20:22 Attending physician: Malachi Barrera Consults: 10/12/20 07:24 Consult Physician Urgent Consulting Provider: Aruna Okeefe Consult Reason/Comments: ams, h/o seizure Do you want consulting provider notified?: Yes Primary care physician: Adrián Martinez Hospital Course: Diagnoses: Altered mental status, mostly advanced/end stage dementia. Patient might be eligible for palliative consult, however wants to wait now Possible bilateral lower lobe atelectasis, pneumonia as possible with elevated procalcitonin Acute kidney injury most likely from dehydration , improved Low-normal vitamin B12, replaced History of seizure with subtherapeutic Dilantin level , level is acceptable Diabetes mellitus Hypertension Hyperlipidemia Dementia with history of agitation History of GERD Primary osteoarthritis benign prostatic hypertrophy Chronic kidney disease, stage II Hospital Course: This is a pleasant 80 years old male with past medical history of dementia, isela betes mellitus, GERD, hypertension, hyperlipidemia, osteoarthritis,. Patient lives in [facility] living facility Patient is poor historian due to his dementia and mental changes. As per documentation patient , leg weakness, inability to walk and noticed patient is leaning to the right. Patient at baseline is confusion with history of dementia and alert to person. However when I went to see the patient he was awake and alert, not in distress, he does not answer my question, he does not follow commands, he just keeps staring around. When asking question were looking at me to just look away . I tried to his voice to make sure he hear me , he looks at me and said he had a negative order he does not follow it and keep plain with the plate in front of him Baseline he hardly knows his , for example last month when the came in this mild and he was telling people this is his girlfriend and not his . However over the last week it looks like the patient could not recognize his either. He has dementia for 10 years and he has a neurologist as an outpatient I talked to the yusef boston at [phone]. As per his baseline is confusion, he lives at assisted living, he does not talk much, he does not ask for food or to be clean, however staff feed him and cleared him several times a day. As per staff also he does not ask foot when hungry, he does not ask to be cleaned when he is soiled. Also patient has been evaluated by neurologist, workup was unremarkable Chest x-ray: Mild to moderate basilar infiltrate versus atelectasis CT of the brain: No acute process. He does not have much respiratory symptoms, however his pro-calcitonin was elevated. The patient was started on Zosyn and he starts waking up a little bit become more active and pro-calcitonin is trending down. Patient will be discharged on short course of oral antibiotic. Neurologist thinks patient has TIA and recommended switch his aspirin to Plavix. Also patient has many diabetes medication including metformin, Actos and Amaryl at home. We added only metformin and we have Actos and Amaryl and his sugars are running 160-220 but at times it drops 210 and 105. Because of this I recommend to keep holding Actos and Amaryl as patient is at risk to hypoglycemia which might contribute to his altered mental status when he came to the hospital. His hemoglobin A1c is 7.6. Seroquel help him calm down It for discharge by neurologist yesterday I talked to the over the phone and she agrees him to be discharged and she was happy about that as she want him to go back to his assisted living, she refused I'm going to [facility] for rehab placement. I recommended to her to do palliative consult as an outpatient given his advanced dementia continue close to end-stage dementia if he is not already at end stage dementia, however the talked to the palliative care team here and she told the staff that she wanted hospice care Now. Patient did not be discharged yesterday for placement issue However patient is going to be discharged regularly and he is going to go [facility] with hospice request upon request Problems and management plan were discussed with the patient as patient cannot understand and she verbalized understanding and acceptance Patient was found stable and can be discharged home in guarded prognosis however he needs follow-up as an outpatient. Patient was instructed to follow up with PCP within one week and patient agrees Physical exam Gen: patient is a AAOx0, no distress, confused, does not follow commands. CVS: S1-S2, RRR, no murmur Lungs: B/L CTA, no wheezing Abdomen: soft, no distention, no tenderness, positive bowel sounds Extremity: no leg edema or induration Time spent more than 35 minutes Patient Condition at Discharge: Poor Plan - Discharge Summary Discharge Rx Participant: No New Discharge Prescriptions: New Clopidogrel [Plavix] 75 mg PO DAILY #30 tab Amoxicillin/Potassium Clav [Augmentin 875-125 Tablet] 1 tab PO Q12HR 7 Days #14 tab Cyanocobalamin [Vitamin B-12] 1,000 mcg PO DAILY #30 tablet Continue Multivitamins, Thera [Multivitamin (formulary)] 1 tab PO DAILY@0700 Losartan Potassium [Cozaar] 100 mg PO DAILY@0700 Pioglitazone [Actos] 45 mg PO DAILY@0700 metFORMIN HCL [Glucophage] 1,000 mg PO BID@0700,1600 Rosuvastatin [Crestor] 20 mg PO HS@1900 QUEtiapine [SEROquel] 50 mg PO TID PRN PRN Reason: Agitation Memantine HCl [Namenda Xr] 28 mg PO HS@1900 Ferrous Sulfate [Iron (65 MG Elemental)] 325 mg PO DAILY@0700 Donepezil [Aricept] 10 mg PO HS@1900 Cholecalciferol [Vitamin D3 (25 Mcg = 1000 Iu)] 2,000 unit PO DAILY@0700 amLODIPine [Norvasc] 5 mg PO DAILY@1900 Tamsulosin HCl [Flomax] 0.4 mg PO DAILY@0700 Divalproex ER [Depakote ER] 250 mg PO BID@0700,1900 Discontinued Aspirin EC [Ecotrin Low Dose] 81 mg PO DAILY@0700 Glimepiride [Amaryl] 2 mg PO AC-BID@0700,1600 Glimepiride [Amaryl] 2 mg PO AC-BID@0700,1600 PRN PRN Reason: bs over 150 Discharge Medication List Losartan Potassium [Cozaar] 100 mg PO DAILY@0700 02/14/15 [History] Multivitamins, Thera [Multivitamin (formulary)] 1 tab PO DAILY@0700 02/14/15 [History] Pioglitazone [Actos] 45 mg PO DAILY@0700 02/14/15 [History] metFORMIN HCL [Glucophage] 1,000 mg PO BID@0700,1600 02/14/15 [History] Cholecalciferol [Vitamin D3 (25 Mcg = 1000 Iu)] 2,000 unit PO DAILY@0700 08/25/18 [History] Donepezil [Aricept] 10 mg PO HS@1900 08/25/18 [History] Ferrous Sulfate [Iron (65 MG Elemental)] 325 mg PO DAILY@0700 08/25/18 [History] Memantine HCl [Namenda Xr] 28 mg PO HS@189908/25/18 [History] QUEtiapine [SEROquel] 50 mg PO TID PRN 08/25/18 [History] Rosuvastatin [Crestor] 20 mg PO HS@189908/25/18 [History] amLODIPine [Norvasc] 5 mg PO DAILY@189908/25/18 [History] Divalproex ER [Depakote ER] 250 mg PO BID@0700,189910/11/20 [History] Tamsulosin HCl [Flomax] 0.4 mg PO DAILY@0700 10/11/20 [History] Amoxicillin/Potassium Clav [Augmentin 875-125 Tablet] 1 tab PO Q12HR 7 Days #14 tab 10/14/20 [Rx] Clopidogrel [Plavix] 75 mg PO DAILY #30 tab 10/14/20 [Rx] Cyanocobalamin [Vitamin B-12] 1,000 mcg PO DAILY #30 tablet 10/14/20 [Rx] Follow up Appointment(s)/Referral(s): [facility] [[facility]-STAFF] - As Needed Adrián Martinez MD [Primary Care Provider] - 1-2 days Activity/Diet/Wound Care/Special Instructions: Low carbohydrate diet Activity is restricted until you see your doctor
--- NOTE | 2020-10-17 11:17 | P.PN ---
Subjective Progress Note Date: 10/14/20 Patient was seen for a follow-up. Patient is comfortably laying in the bed. Patient is partially naked. States he feels "good". Denies headache. He offers no complaints. Objective - Vital Signs Vital signs: Vital Signs Temp 98.0 F 10/14/20 19:16 Pulse 55 L 10/14/20 19:16 Resp 15 10/14/20 14:59 BP 173/74 10/14/20 19:16 Pulse Ox 96 10/14/20 19:16 Intake & Output 10/14/20 10/14/20 10/15/20 06:59 18:59 06:59 Other: Voiding Method Diaper Diaper Incontinent Incontinent # Voids 1 3 - Exam Patient smiles, very limited speech. Patient moves his arms and legs equally. When I try to check reflexes, patient states "not hit me with that". - Labs CBC & Chem 7: 10/14/20 06:53 10/14/20 06:53 Labs: Abnormal Lab Results - Last 24 Hours (Table) 10/13/20 10/14/20 10/14/20 Range/Units 22:41 06:53 06:53 WBC 4.35 L (4.50-10.00) X 10*3/uL RBC 3.77 L (4.40-5.60) X 10*6/uL Hgb 12.7 L (13.0-17.0) g/dL Hct 35.3 L (39.6-50.0) % MCH 33.7 H (27.0-32.0) pg BUN/Creatinine Ratio (12.00-20.00) Ratio Glucose (70-110) mg/dL POC Glucose (mg/dL) 110 H (75-99) mg/dL Procalcitonin 0.39 H (0.02-0.09) ng/mL 10/14/20 10/14/20 10/14/20 Range/Units 06:53 07:10 11:55 WBC (4.50-10.00) X 10*3/uL RBC (4.40-5.60) X 10*6/uL Hgb (13.0-17.0) g/dL Hct (39.6-50.0) % MCH (27.0-32.0) pg BUN/Creatinine Ratio 26.67 H (12.00-20.00) Ratio Glucose 171 H (70-110) mg/dL POC Glucose (mg/dL) 146 H 223 H (75-99) mg/dL Procalcitonin (0.02-0.09) ng/mL 10/14/20 10/14/20 Range/Units 17:02 20:49 WBC (4.50-10.00) X 10*3/uL RBC (4.40-5.60) X 10*6/uL Hgb (13.0-17.0) g/dL Hct (39.6-50.0) % MCH (27.0-32.0) pg BUN/Creatinine Ratio (12.00-20.00) Ratio Glucose (70-110) mg/dL POC Glucose (mg/dL) 163 H 183 H (75-99) mg/dL Procalcitonin (0.02-0.09) ng/mL Microbiology - Last 24 Hours (Table) 10/12/20 07:41 Blood Culture - Preliminary Blood No Growth after 48 hours Assessment and Plan Assessment: * Sudden onset episode of generalized weakness, and inability to get up from the chair, unclear etiology. No focal symptoms reported. Rule out TIA. No obvious metabolic cause is identified. 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 Patient is very disoriented. He has limited speech. * Diabetes * Hypertension * Hyperlipidemia * X tobacco use Plan: * Continue Plavix 75 mg daily. Patient's has decided patient to be hospice care, due to advanced dementia and behavioral difficulties. * Carotid Doppler revealed antegrade flow in the vertebral arteries. There is bilateral plaque formation. There is less than 50% stenosis in both ICAs. * 2-D echo revealed normal left-ventricular size. Mild concentric LVH. EF is 60-65%. No aortic stenosis or regurgitation. Severe mitral annular calcification. Mitral valve leaflets are moderately thickened. * B12 363, folate 22.8. TSH is normal 2.03, Depakote level is 31.6 which is fine. * Fasting lipid panel with cholesterol 118, HDL 42, LDL 56 and triglycerides 97. * Hemoglobin A1c 7.6. Suggest optimize control of diabetes to target A1c <7.0. * We will switch from aspirin to Plavix 75 mg daily. * Patient never has any history of seizures. Depakote is prescribed for mood stabilization. * Patient continues to have altered mental status. EEG not able to be performed because of patient's noncompliance. * If behavioral problems continue, then consider psych consult. * Patient now undergoing hospice care. * We will sign off.
== END 2020-10-15 10:28 | disposition hospice, home (50) ==
LOC: EC 15:17 → 5NMEDONC 20:22 → 4SSUR 10-12 09:36
PROVIDERS: ADMIT Hospitalist; ATTEND Hospitalist
DX: G30.9 Alzheimer's disease, unspecified (principal); F02.80 Dementia in other diseases classified elsewhere, unspecified severity, without behavioral disturbance, psychotic disturbance, mood disturbance, and anxiety; N17.9 Acute kidney failure, unspecified; I12.9 Hypertensive chronic kidney disease with stage 1 through stage 4 chronic kidney disease, or unspecified chronic kidney disease; N18.2 Chronic kidney disease, stage 2 (mild); E11.22 Type 2 diabetes mellitus with diabetic chronic kidney disease; E53.8 Deficiency of other specified B group vitamins; R53.1 Weakness; R79.89 Other specified abnormal findings of blood chemistry; I65.23 Occlusion and stenosis of bilateral carotid arteries; I08.1 Rheumatic disorders of both mitral and tricuspid valves; N40.0 Benign prostatic hyperplasia without lower urinary tract symptoms; M19.91 Primary osteoarthritis, unspecified site; K21.9 Gastro-esophageal reflux disease without esophagitis; H91.93 Unspecified hearing loss, bilateral; D72.829 Elevated white blood cell count, unspecified; E78.5 Hyperlipidemia, unspecified; F41.9 Anxiety disorder, unspecified; Z91.19 Patient's noncompliance with other medical treatment and regimen; Z20.822 Contact with and (suspected) exposure to COVID-19; Z66 Do not resuscitate; Z87.11 Personal history of peptic ulcer disease; Z85.830 Personal history of malignant neoplasm of bone; Z97.3 Presence of spectacles and contact lenses; Z98.890 Other specified postprocedural states; Z95.2 Presence of prosthetic heart valve; Z79.82 Long term (current) use of aspirin; Z79.84 Long term (current) use of oral hypoglycemic drugs; Z79.899 Other long term (current) drug therapy; Z91.013 Allergy to seafood; Z91.048 Other nonmedicinal substance allergy status; Z87.891 Personal history of nicotine dependence; Z82.49 Family history of ischemic heart disease and other diseases of the circulatory system; Z83.3 Family history of diabetes mellitus; Z80.9 Family history of malignant neoplasm, unspecified
CPT/HCPCS: 96376 ×2; 96366 ×2; 96372 ×4; 96361 ×2; 96365; 96375; 99285; 36415; 93005; 93306; 80164; 80061; 80053; 80048 ×3; 80076; 84443; 82607; 82746; 83605; 83735 ×2; 84484; 85025 ×4; 85610; 85730; 86140; 81003; 87040; 83036; 84145 ×3; 87635; 71045; 71046; 93880; 70450; G0378 ×6; J2543; J1644 ×3